=== PATIENT | female | born 1970 | race Caucasian/White ===

== ENCOUNTER 2023-04-17 07:56 | Outpatient (CLI) | payer BC, SELFPAY | END 2023-04-17 07:57 | disposition home or self-care (01) | LOC: NFLDREF 04-18 07:11 | PROVIDERS: PCP Physician Assistant Medical; Referring Provider Physician Assistant Medical; Visit Provider Physician Assistant Medical | DX: Z00.00 Encounter for general adult medical examination without abnormal findings (principal); R53.83 Other fatigue; Z13.6 Encounter for screening for cardiovascular disorders; Z13.1 Encounter for screening for diabetes mellitus | CPT/HCPCS: 80061; 82306; 82607; 82728; 82947; 84443 ==

== ENCOUNTER 2024-04-20 10:00 | Outpatient (CLI) | payer BC, SELFPAY ==
--- OUTSIDE RECORDS SUMMARY | 2024-04-21 13:53 | XMS_ITS | Clinical Summary ---
Author Organization [facility] Address [place], [place] [address] Care Team Providers Care Director Translational Name Role Phone Angelo Musa Primary Care Provider [phone] Allergies Active Allergy Reactions Criticality Noted Date Comments Sulfa (Sulfonamide Antibiotics) Hives 11/14 Medications Medication Sig Dispensed Refills Start Date End Date Status NORGESTIMATE-ETHINYL ESTRADIOL (TRI-SPRINTEC, 28, ORAL) Take by mouth once daily. Active multivitamin capsule Take 1 capsule by mouth once daily. 0 01/24/2010 Active hydrOXYzine pamoate (VISTARIL) 25 mg capsule Take 1 capsule by mouth every 6 hours if needed. 20 capsule 0 12/02/2011 Active rx methylPREDNISolone (MEDROL DOSEPAK) 4 mg tablet (ED DC MED) Take 1 tablet by mouth. As indicate on the medication pack 1 Package 0 12/02/2011 Active Active Problems Problem Noted Date Diagnosed Date Routine health maintenance 01/24/2010 Overview: Last Breast Exam 04/12/09 Last Cholesterol 04/12/09 Immunizations Name Administration Dates Next Due Td (Age >=7 Years) 02/02/2003 Family History Medical History Relation Name Comments Hypertension Father Hyperlipidemia Mother Alcohol/Drug Other Grandparent Cancer Other Grandparent Heart Disease Other Grandparent Hyperlipidemia Other Grandparent Hypertension Other Grandparent Stroke Other Grandparent Relation Name Status Comments Father Mother Other Social History Tobacco Use Types Packs/Day Years Used Date Smoking Tobacco: Never Smokeless Tobacco: Never Alcohol Use Standard Drinks/Week Comments Yes 0 (1 standard drink = 0.6 oz pur e alcohol) Sex and Gender Information Value Date Recorded Sex Assigned at Not on file Gender Identity Not on file Sexual Orientation Not on file Obstetrics History Last Filed Vital Signs Vital Sign Reading Time Taken Comments Blood Pressure 119/90 12/02/2011 10:04 AM CDT Pulse 65 12/02/2011 10:04 AM CDT Temperature 36.6 ??C (97.9 ??F) 12/02/2011 10:04 AM C DT Respiratory Rate 16 12/02/2011 10:04 AM CDT Oxygen Saturation 98% 12/02/2011 10:04 AM CDT Inhaled Oxygen Concentration - - Weight 62.3 kg (137 lb 6.4 oz) 01/24/2010 9:32 A M CDT Height - - Body Mass Index - - Plan of Treatment Health Maintenance Due Date Last Done Comments Tdap 1979 Depression screening for age 12+ 1980 HIV for age 15-65 1983 BMI (ht and wt on same day) for age 18+ 1986 Hepatitis C screening for ag e 18-79 1986 Pap test for age 21-65 1989 Tetanus booster 02/02/2013 02/02/2003 Colonoscopy through age 75 2013 Lipids for age 45-75 2013 Mammogram for age 45-75 2013 Zoster (shingles) series for age 50+ (1 of 2) 2018 COVID-19 vaccine series ( - 2022- season) 2023 Influenza for age 50-64 05/17/2024 Pneumococcal series for age 6-64 Aged Out No longer eligible based on patient's age to complete this topic Care Teams Director Translational Relationship Specialty Start Date End Date Angelo Musa PA [facility] - General 01/23/10
--- OUTSIDE RECORDS SUMMARY | 2024-04-21 13:53 | XMS_ITS | Referral Summary ---
Author Organization [facility] Address [address] [place] [id number] Care Team Providers Care Tool Machine Shop Supervisor Name Role Phone Diana Mccoy MD Primary Care Provider + Allergies Active Allergy Reactions Criticality Noted Date Comments Sulfa Antibiotics Hives 06/11/2017 Medications Medication Sig Dispensed Refills Start Date End Date Status norethindrone-ethin yl estradiol-iron (ESTROSTEP FE) 1-20/1-30/1-35 MG-MCG per tablet Take 1 tablet by mouth daily Active phenazopyridine (PYRIDIUM) 200 MG tabletIndications:D ysuria Take 1 tablet (200 mg) by mouth 3 times daily as needed for irritation 6 tablet 06/11/2017 Active cefdinir (OMNICEF) 300 MG capsuleIndications: Dysuria,Nonspecific finding on examination of urine Take 1 capsule (300 mg) by mouth 2 times daily 14 capsule 06/11/2017 Active Social History Tobacco Use Types Packs/Day Years Used Date Smoking Tobacco: Never Smokeless Tobacco: Never Adolescent Education Answer Date Record ed Getting School Help Needed Not on file 06/30 Sex and Gender Information Value Date Recorded Sex Assigned at Not on file Gender Identity Not on file Sexual Orientation Not on file Last Filed Vital Signs Vital Sign Reading Time Taken Comments Blood Pressure 140/90 06/11/2017 7:43 PM CDT Pulse 72 06/11/2017 7:43 PM CDT Temperature 36.9 ??C (98.5 ??F) 06/11/2017 7:43 PM CD T Respiratory Rate - - Oxygen Saturation 98% 06/11/2017 7:43 PM CDT Inhaled Oxygen Concentration - - Weight - - Height - - Body Mass Index - - Plan of Treatment Not on file Procedures Procedure Name Priority Date/Time Associated Diagnosis Comments MA SCREENING BILATERAL W/ TREVON Routine 03/22/2022 10:29 AM CDT Visit for screening mammogram from Last 3 Months or Most Recently Relevant to Health Maintenance Results * MA Screen Bilateral w/Trevon (03/22/2022 10:29 AM CDT) Anatomical Region Laterality Modality Breast Bilateral Mammography Narrative 03/22/2022 1:26 PM CDT BILATERAL FULL FIELD DIGITAL SCREENING MAMMOGRAM WITH TOMOSYNTHESIS Performed on: 03/22/22 Compared to: 03/21/2021 and 10/01/2016 Technique: ??This study was evaluated with the assistance of Computer-Aided Detection. ??Breast Tomosynthesis was used in interpretation. Findings: The breasts are heterogeneously dense, which may obscure small masses. ??There is no radiographic evidence of malignancy. IMPRESSION: ACR BI-RADS Category 1: Negative RECOMMENDED FOLLOW-UP: Annual routine screening mammogram The results and recommendations of this examination will be communicated to the patient. Diana Mccoy MD IMG MAMMOGRAPHY ORDERABLES from Last 3 Months or Most Recently Relevant to Health Maintenance Care Teams Tool Machine Shop Supervisor Relationship Specialty Start Date End Date Diana Mccoy MD [address] [place] [address] PCP - General cheese tester 05/12/12
--- OUTSIDE RECORDS SUMMARY | 2024-04-21 13:53 | XMS_ITS | Clinical Summary ---
Author Organization [facility] Address [address] [place] [id number] Care Team Providers Care Property Management Bookkeeper Name Role Phone Diana Mccoy MD Primary [...] Health Maintenance Due Date Last Done Comments ADVANCE CARE PLANNING 1968 ANNUAL REVIEW OF HM ORDERS 1968 CT COLONOGRAPHY 1968 FIT 1968 FLEX SIG 1968 GLUCOSE 1968 sDNA (Cologuard) 1968 COLONOSCOPY 1978 COLORECTAL CANCER SCREENING 1978 HIV SCREENING 1983 HEPATITIS C SCREENING 1986 HEPATITIS B IMMUNIZATION (1 of 3 - 19+ 3-dose series) 1987 LIPID 2008 YEARLY PREVENTIVE VISIT 03/01/2023 03/01/20, 02/28/2022, 08/29/2017 COVID-19 Vaccine ( season) 2023 08/14/2021, 12/07/2020, 11/09/2020 PHQ-2 (once per calendar year) 2023 MAMMO SCREENING 03/22/2024 03/22/2022, 07/0 05/2021, 03/21/2021, Additional history exists INFLUENZA VACCINE (#1) 2024 3, 06/19/2012, 06/19/2012 PAP 03/01/2025 03/01/2022, 03/01/2022 DTAP/TDAP/TD IMMUNIZATION (3 - Td or Tdap) 02/25/2029 02/25/2019, 03/16/2013, 02/02/2003 ZOSTER IMMUNIZATION Completed 07/02/2019, 9 HPV IMMUNIZATION Aged Out No longer e ligible based on patient's age to complete this topic IPV IMMUNIZATION Aged Out No longer e ligible based on patient's age to complete this topic MENINGITIS IMMUNIZATION Aged Out No l onger eligible based on patient's age to complete this topic Pneumococcal Vaccine: Pediatrics (0 to 5 Years) and At-Risk Patients (6 to 64 Years) Aged Out No longer eligible based on patient's age to complete this topic RSV MONOCLONAL ANTIBODY Aged Out No l onger eligible based on patient's age to complete this topic Procedures Procedure Name Priority Date/Time Associated Diagnosis [...] Recently Relevant to Health Maintenance Care Teams Property Management Bookkeeper Relationship Specialty Start Date End Date Diana Mccoy MD [address] [place] [address] PCP - General hospital [facility] 05/12/12
--- OUTSIDE RECORDS SUMMARY | 2024-04-21 13:53 | XMS_ITS | Clinical Summary ---
[facility] Address [address] [place] [address] Care Team Providers Care Automotive Window Tinter Name Role Phone Erika Tello PA-C Primary Care Provider [phone] Source Comments You are receiving this document as you are listed as the primary care provider,follow-up provider, or the patient has been referred to you for consultation.This is in compliance with the Medicare and[employer] EHR Incentive Program,which states Providers who transition their patient to another setting of careor provider of care or refers their patient to another provider of care shouldprovide summary care record for each transition of care or referral. [facility] Active Allergy Reactions Criticality Noted Date Comments Lactose Unknown 08/24/2023 Sulfa Antibiotics Hives 03/16/2013 Medications Medication Sig Dispensed Refills Start Date End Date Status tretinoin (AKA RETIN-A) 0.025 % creamIndications:Acn e vulgaris Apply topically nightly. Apply to cleansed and dried skin. Will call when needed. 45 g 3 01/09/2016 Active spironolactone (ALDACTONE) 50 MG tabletIndications:Ac ne vulgaris Take 1 Tab by mouth daily. 90 Tab 1 03/08/2017 Active calcium carb-cholecalciferol 600-800 MG-UNIT tablet Take 1 Tab by mouth two times a day. Active Cholecalciferol (VITAMIN D3) 66070 UNITS Active predniSONE (DELTASONE) 10 MG tablet Take 4 tabs by mouth daily for 2 days, then 3 tabs daily for 2 days, then 2 tabs daily for 2 days, then 1 tab daily for 2 days. 20 Tablet 08/26/2023 Active Active Problems Problem Noted Date Diagnosed Date Metrorrhagia 08/29/2017 Irregular periods 08/29/2017 Family history of thyroid disease 08/29/2017 Acne vulgaris 01/09/2016 Immunizations Name Administration Dates Next Due Chicken Pox - History of Illness 1973 Flu Vac Preserv Free (3+yrs) 06/19/2012 HepA Adult (19+ yrs) 08/29/2017,03/16/2013 TDAP (BOOSTRIX) 03/16/2013 Td 02/02/2003 Family History Medical History Relation Name Comments Diabetes Father Prediabetes Hypertension Father Obesity Father Cancer Mother Breast cancer a ge 67 Ulcerative Colitis Mother Alzheimer's Maternal Grandfather No Known Problems Maternal Grandmother Alcohol Abuse Paternal Grandfather Stroke Paternal Grandfather Heart Disease Paternal Grandmother Other Sister 1 Brittle Bones Thyroid Disorder Sister 2 Anxiety Sister 3 Depression Sister 3 Multiple Sclerosis Sister 3 Relation Name Status Comments Father Alive Mother Alive Maternal Grandfather Maternal Grandmother Paternal Grandfather Paternal Grandmother Sister 1 Alive Sister 2 Alive Sister 3 Alive Social History Tobacco Use Types Packs/Day Years Used Date Smoking Tobacco: Never Smokeless Tobacco: Never Alcohol Use Standard Drinks/Week Comments Yes 4 (1 standard drink = 0.6 oz pur e alcohol) Sex and Gender Information Value Date Recorded Sex Assigned at Not on file Gender Identity Not on file Sexual Orientation Not on file Last Filed Vital Signs Vital Sign Reading Time Taken Comments Blood Pressure 138/79 08/29/2017 5:02 PM FARM SPECIALIST Pulse 86 08/29/2017 5:02 PM FARM SPECIALIST Temperature 36.4 ??C (97.6 ??F) 08/24/2023 2:08 PM CS T Respiratory Rate 16 08/29/2017 8:07 AM FARM SPECIALIST Oxygen Saturation - - Inhaled Oxygen Concentration - - Weight 61.2 kg (135 lb) 08/24/2023 2:08 PM FARM SPECIALIST Height 170.2 cm (5' 7) 08/24/2023 2:08 PM FARM SPECIALIST Body Mass Index 21.14 08/24/2023 2:08 PM FARM SPECIALIST Plan of Treatment Health Maintenance Due Date Last Done Comments Colon Cancer Screening Plan Due 1968 Hep C Screening (Preventive Services) 1968 HIV Screening (Preventive Services) 1984 HepB (1) 1987 Adult Preventive Visit 08/29/2018 08/29/2017 Cervical Cancer Screening 09/16/20192016 (Completed) Cholesterol 08/29/2022 08/29/2017 Mammogram 03/22/2023 03/22/2022, 10/01/2016, 04/19/2016 COVID-19 Vaccine (4 - 3-2 4 season) 2023 08/14/2021, 12/07/2020, 11/09/2020 Influenza (#1) 2024 06/18/2013, 06/19/2012 DTaP/Tdap/Td (3 - Tdap) 02/25/2029 02/26/20, 03/16/2013, 02/02/2003 HepA Aged Out 08/29/2017, 03/16/2013 No longer eligible based on patient's age to complete this topic Zoster/Shingles Completed 07/02/2019, 03/09/2019 Hib Aged Out No longer eligi ble based on patient's age to complete this topic IPV (Polio) Aged Out No longer eligi ble based on patient's age to complete this topic MCV4 Aged Out No longer eligi ble based on patient's age to complete this topic Pneumococcal Aged Out No longer eligi ble based on patient's age to complete this topic Procedures Procedure Name Priority Date/Time Associated Diagnosis Comments MM MAMMOGRAM SCREENING BILAT W 3D JUDITH W CAD Routine 03/22/2022 10:29 AM CDT LIPID PANEL & DIRECT LDL (IF NEEDED) Routine 08/29/2017 9:11 AM FARM SPECIALIST Encounter for screening for lipoid disorders from Last 3 Months or Most Recently Relevant to Health Maintenance Results * (ABNORMAL) Lipid Panel and Direct LDL(If Needed) (08/29/2017 9:11 AM FARM SPECIALIST) Cholesterol 245(H) 0 - 199 mg/dL PN SOFT Triglycerides 90 4 - 149 mg/dL PN SOFT HDL Cholesterol 84 >39 mg/dL PN SOFT Cholesterol/HDL Ratio Screen 2.9 PN SOFT LDL Calculated 143(H) 19 - 130 mg/dL PN SOFT Non HDL Chol, Calc 161(H) 0 - 130 mg/dL PN SOFT Hours Fasting 12.0 PN SOFT 08/29/2017 9:11 AM FARM SPECIALIST 08/29/2017 11:25 AM FARM SPECIALIST Narrative PN SOFT - 08/29/2017 11:59 AM FARM SPECIALIST Performed at [facility], [address] [place] [address] CLIA number [id number] Erika Tello PA-C LAB_[facility] [address] [place] [address] from Last 3 Months or Most Recently Relevant to Health Maintenance Care Teams Automotive Window Tinter Relationship Specialty Start Date End Date Erika Tello PA-C [address] [place] [address] PCP - General Physician Special Education Resource Teacher 08/19/17
== END 2024-04-20 10:01 | disposition home or self-care (01) ==
LOC: NFLDREF 04-21 13:51
PROVIDERS: PCP Physician Assistant Medical; Referring Provider Physician Assistant Medical; Visit Provider Physician Assistant Medical
DX: Z00.00 Encounter for general adult medical examination without abnormal findings (principal); E78.5 Hyperlipidemia, unspecified; D68.2 Hereditary deficiency of other clotting factors
CPT/HCPCS: 80053; 80061

== ENCOUNTER 2024-05-19 19:57 | Emergency (ER) | payer BC, SELFPAY ==
[2024-05-19 20:06] VITALS: BP 189/100; PULSE 65; RESP 16; TEMP 36.7; O2SAT 99; BMI 21.3
--- NOTE | 2024-05-19 20:23 | ED_ITS ---
HPI - General Adult General Time Seen by Provider: 20:24 Date Seen: 05/19/24 Chief complaint: Hypertension Stated complaint: High BP and Dizzy Time Seen by Provider: 05/19/24 20:16 Source: patient and RN notes reviewed Mode of arrival: ambulatory Limitations: no limitations History of Present Illness HPI narrative: Willie is a 53-year-old female accompanied by her significant other coming in with episode of dizziness. She notes sometime probably between 4-430 p.m. today she started feeling dizzy. She describes it as a spinning sensation. She states that it was like if someone took her and spun her around on an object and then had her try to walk, she felt like she was spinning in relationship to the environment. He did try to help her up at 1 point, she seemed like she was going to stumble, had her get back on the couch. She has not had any alcohol or any mood altering substances. He did not notice any speech changes. She did not get sick with this. She noted no visual changes, no headache. On her way here, she felt like her face in neck and chest felt a little numb. As I am talking to her she states like her arms maybe feel little numb. We discussed that stroke symptoms just happen on 1 side of the body or other. She admits that this episode probably gave her some anxiety. She is feeling better at this time, feels that she is improved. She did not notice any tinnitus or any hearing changes during this episode. She told nursing staff that she was feeling foggy. She had an episode about 5 years ago where her blood pressure was elevated, they found it to be attributed to her control pills in resolved when she was off of this. He did check her blood pressure when he came home to find her this way in the couch, was 160/90 range. Her cholesterol has been a little elevated. She has no prior cardiac or neurologic diagnoses. She is factor 12 deficient. She has not had any blood clots before. 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 Denies any chest pain. States ambulating in felt much better than it did at attempt earlier. Related Data Home Medications ?Medication ?Instructions ?Recorded ?Confirmed multivitamin (Multiple Vitamins 1 tab PO QAM 06/28/22 04/23/24 tablet) trazodone 50 mg tablet 50 mg PO QPM 05/19/24 05/19/24 Previous Rx's ?Medication ?Instructions ?Recorded tretinoin 0.025 % topical cream 1 applic topical ONCE #45 grams 10/31/23 Allergies Allergy/AdvReac Type Severity Reaction Status Date / Time Sulfa (Sulfonamide Allergy Severe Hives Verified 04/23/24 10:04 Antibiotics) nickel Allergy Unknown Redness of Verified 04/23/24 10:04 Skin Review of Systems Status of ROS: Reports: 6 or more systems reviewed and unremarkable except as noted in History and below PFSH PFS Surgical History Hx of bladder repair surgery ?Z98.890 - Other specified postprocedural states (ICD-10) History of endometrial ablation ?Z98.890 - Other specified postprocedural states (ICD-10) Hx of lumpectomy ?Z98.890 - Other specified postprocedural states (ICD-10) Hx of oral surgery ?Z98.890 - Other specified postprocedural states (ICD-10) Hx of tonsillectomy ?Z90.89 - Acquired absence of other organs (ICD-10) Family History Mother Ulcerative colitis Breast cancer High blood pressure Sister Cancer of kidney Sister Multiple sclerosis Father Coronary artery disease Diabetes High blood pressure Social History Narrative: alcohol use 1-2 drinks per week, Never smoker- non tobacco user Employed- special Ed specialist . 2 adult children ( 28 yo, 27 yo) Smoking Status: Never smoker Do you use any of these nicotine containing products: None Second hand tobacco smoke exposure: No How often do you have a drink containing alcohol: never How often do you have six or more drinks on one occasion: Never AUDIT-C Alcohol total score: 0 Non-prescribed substance use: denies use Little interest or pleasure in doing things: not at all Feeling down, depressed, or hopeless: not at all Exam Const: Vital Signs, click to edit/add: Vital Signs - 24 hr 05/19/24 20:06 05/19/24 21:00 05/19/24 21:42 Temperature 98.1 F Pulse Rate [Pulse Oximeter] 65 61 Respiratory Rate 16 16 Blood Pressure [Ri ght Upper Arm] 189/100 H 151/98 H Pulse Oximetry 99 98 98 Oxygen Delivery Me thod Room Air Room Air This 53-year-old female is alert, interactive, no apparent distress. Her speech is normal, pupils are equal round reactive, extraocular muscles intact. Do note some fine being lateral nystagmus to the left. Moving her head with a fixed gaze shows no saccade issues. It does not bother her when I do this. TMs canals are normal. Symmetrical facial function. Neck is supple, no adenopathy, no jugular venous distension. Lungs are clear, good air entry, no wheezing or crackles. CV regular rate and rhythm, no murmur, normal S1-S2, no S3-S4. Abdomen is soft, nontender, nondistended. She has 5/5 symmetrical strength through the fingers, hands, wrists, elbows, shoulders, lower extremity strength is same with 5/5 through toes, ankles, knees, hips. She did reportedly ambulate in. She has normal sensation throughout. No lower extremity edema. Normal rapid alternating finger movements, no arm drift. Documenting provider has reviewed patient's vital signs: yes Course Course ED Course: Did review with patient that we should proceed with neuro imaging. Will do a head CT and CT angio of her head neck. Have her on pulse oximetry and cardiac monitoring. I am happy that she is improving and feeling better. Will get full complement of labs. Her sensation that she is describing certainly sounds like vertiginous equivalent. Am not aware that factor 12 deficiency is a notable offender with cerebrovascular disease but in up-to-date it can be associated with venous thromboembolism and myocardial infarction. This is not a very common disorder though and literature is ambiguous. Reevaluation(s) Time of Reevaluation #1: 22:14 Reevaluation #1: Did review CT findings with the patient. She knows that she should continue on her cholesterol medicine or be on cholesterol medicine given the atherosclerosis seen in the left carotid. This will need ongoing monitoring with routine outpatient carotid ultrasounds which can be done through her primary. There is the possibility of thyroid nodules, she will need an outpatient thyroid ultrasound done as well. As for the MRI, it is recommended that she have this and stay overnight by [facility]. Patient really does not want to stay, she is feeling fine. Discussed the option of having her contact [facility] to see if they could get her an expedited brain MRI noncontrast to complete this workup. She already had CT angio done of the brain and neck and thus does not need to be done on MR imaging at this point. We have discussed the challenges of decipher ring central versus peripheral vertigo. We cannot completely rule out stroke pathology is the causative etiology of this but she is out of time frame for any active intervention like lytic therapy, no large vessel occlusion was seen on her CT angio however. I think it is reasonable for her request to go home and work this up outpatient. She understands if she has worsening interim, to return. Consultations Consultation #1: Did speak with Dr. Nelson from [facility]roke [facility] at [place]. She does agree with doing the CT, CTA to ensure no vertebral artery abnormality. Patient is out of a lytic time frame at this point. We reviewed the blood pressure, patient's history. She certainly would recommend follow-up MR imaging of this patient's brain, will need to decide if this needs to happen inpatient versus outpatient. Patient at this time is improved. Plan will be for me to contact her back once images have been read by radiologist. Time: 21:09 Consultation #2: Did speak with Dr. Nelson and reviewed CT, CTA reports. She feels that this patient should be observed overnight to have MR imaging of her brain in the morning to ensure that this is peripheral and not central. She would like me to give her an 81 mg aspirin. If the patient does not agree to stay overnight, I will let her know and we will litigation counsel the patient on getting expedited outpatient brain MRI. Time: 22:03 Vital Signs Vital signs: Initial Vital Signs Temperature 98.1 F 05/19/24 20:06 Temperature Source Temporal Artery Scan 05/19/24 20:06 Pulse Rate 65 05/19/24 20:06 Pulse Rhythm Regular 05/19/24 20:06 Respiratory Rate 16 05/19/24 20:06 Blood Pressure 189/100 H 05/19/24 20:06 Blood Pressure Mean 129 H 05/19/24 20:06 Blood Pressure Position Supine 05/19/24 20:06 Pulse Oximetry 99 05/19/24 20:06 Oxygen Delivery Method Room Air 05/19/24 20:06 Vital Signs Temperature 98.1 F 05/19/24 20:06 Pulse Rate 65 05/19/24 20:06 Respiratory Rate 16 05/19/24 20:06 Blood Pressure 189/100 H 05/19/24 20:06 Pulse Oximetry 99 05/19/24 20:06 Oxygen Delivery Method Room Air 05/19/24 20:06 Temperature 98.1 F 05/19/24 20:06 Pulse Rate 61 05/19/24 21:42 Respiratory Rate 16 05/19/24 21:42 Blood Pressure 151/98 H 05/19/24 21:42 Pulse Oximetry 98 05/19/24 21:42 Oxygen Delivery Method Room Air 05/19/24 21:42 Medical Decision Making Lab Data Lab results reviewed: Yes I reviewed the patient's lab results Labs: Lab Results 05/19/24 Range/Units 20:28 WBC 4.85 (4.50-11.00) K/uL RBC 3.99 L (4.00-5.20) m/uL Hgb 12.2 (12.0-16.0) gm/dL Hct 36.7 (33.0-51.0) % MCV 92 (80-100) fL MCH 31 (26-34) pg MCHC 33 (32-36) gm/dL RDW Coeff of Alicia 12.9 (11.5-15.5) % Plt Count 218 (140-440) K/uL Neut % (Auto) 34.1 L (42.0-72.0) % Lymph % (Auto) 50.3 H (20-44) % [place] % (Auto) 9.5 (0.0-11.0) % Eos % (Auto) 4.9 (0.0-7.0) % Baso % (Auto) 0.8 (0.0-3.0) % Neut # (Auto) 1.70 (1.7-7.0) K/uL Lymph # (Auto) 2.40 (0.90-2.90) K/uL [place] # (Auto) 0.50 (0.00-0.90) K/UL Eos # (Auto) 0.24 (0.00-0.50) K/uL Baso # (Auto) 0.04 (0.00-0.30) K/uL Abs Immat Gran (auto) 0.02 (0.00-0.30) K/uL Imm/Tot Granulo (auto) 0.4 % Sodium 136 (135-149) mmol/L Potassium 3.8 (3.6-5.1) mmol/L Chloride 102 (96-114) mmol/L Carbon Dioxide 29 (20-32) mmol/L Anion Gap 5 L (7-15) mEq/L BUN 17 (7-30) mg/dL Creatinine 0.7 (0.5-1.5) mg/dL Estimated Creat Clear 91.03 Estimated GFR 102 ml/min Glucose 86 (60-115) mg/dL Calcium 9.3 (8.4-10.6) mg/dL Magnesium 2.2 (1.5-2.6) mg/dL Total Bilirubin 0.4 (0.1-1.5) mg/dL AST 29 (12-35) U/L ALT 15 (4-35) U/L Alkaline Phosphatase 66 (40-150) U/L C-Reactive Protein < 0.5 L (0.5-1.0) mg/dL Total Protein 7.1 (6.0-8.3) g/dL Albumin 4.5 (3.3-5.0) g/dL Imaging Data CT scan - head: Attestation: I have reviewed the pertinent imaging results. Radiologist's impression: Patient: WILLIE ROA Facility:?[facility] Patient ID:?[id number] Site Patient ID:?[id number]. Site :?1970 Study:?CT-Head W/O-05/19/2024 9:22:37 PM Ordering Physician:JOAO Final Report: INDICATION: Dizziness. COMPARISON: None. TECHNIQUE: Noncontrast CT head. FINDINGS: Normal brain parenchymal morphology. No acute intracranial hemorrhage, acute infarct, focal edema, mass effect, or fracture. No midline shift. No abnormal ventricular dilatation. Normal calvarium and skull base. Visualized paranasal sinuses and mastoid air cells are clear. IMPRESSION: No acute intracranial abnormality. Please note that all CT scans at this facility use dose modulation, iterative reconstruction, and/or weight-based dosing when appropriate to reduce radiation dose to as low as reasonably achievable. Dictated by Robert Mera MD @ 05/19/2024 9:37:35 PM (Electronic Signature) CT- Other: Attestation: I have reviewed the pertinent imaging results. Radiologist's impression: Patient: WILLIE ROA Facility:?[facility] Patient ID:?[id number] Site Patient ID:?[id number]. Site :?1970 Study:?CT-Neck Angio W/ 95CC ISOVUE 370-05/19/2024 9:23:32 PM Ordering Physician:JOAO Preliminary Report: INDICATION: Dizziness. COMPARISON: None. Technique. FINDINGS: CTA head: Bilateral carotid siphons and [place] are patent. Major bilateral intracranial arterial circulations are patent with no high-grade stenosis, large vessel occlusion, or aneurysm. Patent codominant vertebrobasilar system. CTA neck: Mild atheromatous plaque of the left carotid bulb with mild, less 50 percent narrowing by luminal diameter. Otherwise, remainder of the bilateral carotid circulations are patent to the skullbase. No high-grade stenosis. Patent bilateral vertebral artery circulations from the origin through the v ertebrobasilar junction. No high-grade stenosis or dissection. Other: Normal alignment the cervical spine. No prevertebral soft tissue swelling. Low attenuation nodularity of the thyroid gland. This may be better evaluated with ultrasound. Dictated by Robert Mera MD @ 05/19/2024 9:42:09 PM Read by:?Robert Mera MD @05/19/2024 9:42:18 PM ECG Data Attestation: I personally reviewed and interpreted this ECG as follows: (Normal sinus rhythm, 67 beats per minute. No acute ischemic change or infarct.) Discharge Plan Discharge Clinical Impression: Vertigo, Elevated blood pressure reading Patient Disposition: Home, Self-Care Condition: Stable Instructions: Vertigo (ED) Additional Instructions: Need to follow up in clinic as soon as possible, do get an appointment scheduled. Regardless, need to talk to clinic staff tomorrow to see if they can help get a noncontrast brain MRI done as quickly as possible, I would hope that it could be done within the next few days throughout our organization if possible. Consider taking an 81 mg aspirin daily until you do note that there is no evidence of any small stroke on brain MRI. You do need to follow up with your primary care provider about the other findings on the CT scans, thyroid ultrasound should be done and routine follow-up of the carotid atherosclerosis should be done. Your blood pressure needs to be rechecked and make sure that you are not developing hypertension. In the meantime, she do develop increased symptoms of vertigo again or other concerns, please return for further evaluation. Activity Level: Activity as Tolerated Prescriptions: No Action multivitamin [Multiple Vitamins] Tablet 1 tab PO QAM tretinoin 0.025 % cream 1 applic topical ONCE Qty: 45 1RF Rx Instructions: APPLY TOPICALLY TO AFFECTED AREA AT NIGHT BEFORE BED trazodone 50 mg tablet 50 mg PO QPM Follow Up/Referrals: Karlie Juárez PA-C [Primary Care Provider] - Stand Alone Forms: [employer] Info Instructions
--- NOTE | 2024-05-19 20:34 | CT_ITS ---
Patient: WILLIE ROA Facility:?[facility] Patient ID:?[id number] Site Patient ID:?[id number]. Site :?1970 Study:?CT-Head Angio W/ 95CC ISOVUE 370-05/19/2024 9:24:21 PM Ordering Physician:JOAO Final Report: DATE: 05/19/2024 CLINICAL HISTORY: Patient with dizziness. TECHNIQUE: Standard helical CT image acquisition through the intracranial circulation following intravenous administration of contrast material with bolus tracking. 2D and 3D MIP images for post-processing were performed and interpreted on an independent workstation and 3D images were permanently archived. COMPARISON: CT same day. FINDINGS: There is no cerebral aneurysm or large vessel occlusion. The right internal carotid artery is normal. The right middle cerebral artery and its branches are normal. The right anterior cerebral artery and its branches are normal. The left internal carotid artery is normal. The left middle cerebral artery and its branches are normal. The left anterior cerebral artery and its branches are normal. The anterior communicating artery is well visualized and appears normal. The right vertebral artery and PICA are normal. The left vertebral artery and PICA are normal. The vertebral arteries are codominant. The basilar artery is patent and appears normal. The right posterior cerebral artery is normal. The left posterior cerebral artery is normal. The visualized venous structures are patent. IMPRESSION: Patent proximal intracranial vasculature without intracranial aneurysms. Please note that all CT scans at this facility use dose modulation, iterative reconstruction, and/or weight-based dosing when appropriate to reduce radiation dose to as low as reasonably achievable. Dictated by Leia Nuñez MD @ 05/20/2024 12:17:23 PM Signed by:?Leia Nuñez MD @05/20/2024 12:17:23 PM (Electronic Signature)
--- NOTE | 2024-05-19 20:34 | CT_ITS ---
Patient: WILLIE ROA Facility:?[facility] Patient ID:?[id number] Site Patient ID:?[id number]. Site :?1970 Study:?CT-Head W/O-05/19/2024 9:22:37 PM Ordering Physician:JOAO Final Report: INDICATION: Dizziness. COMPARISON: None. TECHNIQUE: Noncontrast CT head. FINDINGS: Normal brain parenchymal morphology. No acute intracranial hemorrhage, acute infarct, focal edema, mass effect, or fracture. No midline shift. No abnormal ventricular dilatation. Normal calvarium and skull base. Visualized paranasal sinuses and mastoid air cells are clear. IMPRESSION: No acute intracranial abnormality. Please note that all CT scans at this facility use dose modulation, iterative reconstruction, and/or weight-based dosing when appropriate to reduce radiation dose to as low as reasonably achievable. Dictated by Robert Mera MD @ 05/19/2024 9:37:35 PM Signed by:?Robert Mera MD @05/19/2024 9:37:35 PM (Electronic Signature)
--- NOTE | 2024-05-19 20:34 | CT_ITS ---
Patient: WILLIE ROA Facility:?[facility] Patient ID:?[id number] Site Patient ID:?[id number]. Site :?1970 Study:?CT-Neck Angio W/ 95CC ISOVUE 370-05/19/2024 9:23:32 PM Ordering Physician:JOAO Final Report: DATE: 05/19/2024 CLINICAL HISTORY: Patient with dizziness. TECHNIQUE: Standard helical CT image acquisition of the neck up to the skull base after bolus intravenous contrast enhancement. 2D and 3D MIP images for post-processing were performed and interpreted on an independent workstation and 3D images were permanently archived. COMPARISON: CT same day. FINDINGS: The origins of the great vessels from the aortic arch are patent. The origin of the right vertebral artery demonstrates mild narrowing. The origin of the left vertebral artery is patent. The common carotid arteries are patent. There is no stenosis at the origin of the right internal carotid artery by NASCET criteria. There is a mild (<50%) stenosis at the origin of the left internal carotid artery by NASCET criteria. This is caused by non-calcified plaque with a <2mm residual lumen. The rest of the cervical segments of the internal carotid arteries are patent up to the skull base. The vertebral arteries are codominant. The cervical segments of the vertebral arteries are patent up to the skull base. The visualized lung apices are unremarkable. The thyroid gland demonstrates a 1.8cm heterogeneous lesion in its right lobe. The soft tissues of the neck are unremarkable. There are degenerative changes in the cervical spine. IMPRESSION: 1. Mild (<50%) stenosis at the origin of the left internal carotid artery by NASCET criteria. This is caused by non-calcified plaque with a <2mm residual lumen 2. Mild narrowing at the origin of the right vertebral artery. 3. 1.8cm heterogeneous right thyroid lesion. Further evaluation with ultrasound is recommended. Please note that all CT scans at this facility use dose modulation, iterative reconstruction, and/or weight-based dosing when appropriate to reduce radiation dose to as low as reasonably achievable. Dictated by Leia Nuñez MD @ 05/20/2024 12:15:19 PM Signed by:?Leia Nuñez MD @05/20/2024 12:15:19 PM (Electronic Signature)
[2024-05-19 21:00] VITALS: O2SAT 98
--- NOTE | 2024-05-19 21:04 | PC.NURSE ---
Pt. states approx. two hours ago was making dinner and began feeling dizzy. not like the room was spinning, like I was spinning. Denies headache. States she felt maybe she needed to eat, while eating pt states she felt better holding her head with her hand. Pt also c/o bilateral arm tingling from upper humerus to wrist that is constant.
[2024-05-19 21:12] LABS: Albumin* 4.5 g/dL (3.3-5.0); Basophils Absolute Auto 0.04 K/uL (0.00-0.30); Basophils Percent Auto 0.8 % (0.0-3.0); Chloride* 102 mmol/L (96-114); Eosinophils Absolute Auto 0.24 K/uL (0.00-0.50); Eosinophils Percent Auto 4.9 % (0.0-7.0); Hematocrit 36.7 % (33.0-51.0); Hemoglobin* 12.2 gm/dL (12.0-16.0); Immature Granulocytes Abs Auto 0.02 K/uL (0.00-0.30); Immature Granulocytes Pct Auto 0.4 %; Lymphocytes Percent Auto 50.3 % (20-44); Mean Corpuscular HGB Conc 33 gm/dL (32-36); Mean Corpuscular Hemoglobin 31 pg (26-34); Mean Corpuscular Volume 92 fL (80-100); Monocytes Percent Auto 9.5 % (0.0-11.0); Neutrophils Percent Auto 34.1 % (42.0-72.0); Platelet Count* 218 K/uL (140-440); RDW Coefficient of Variation % 12.9 % (11.5-15.5); Red Blood Count 3.99 m/uL (4.00-5.20); White Blood Count* 4.85 K/uL (4.50-11.00)
[2024-05-19 21:13] LABS: Potassium* 3.8 mmol/L (3.6-5.1); Slide Review Reflex No; Sodium* 136 mmol/L (135-149)
[2024-05-19 21:15] LABS: Creatinine* 0.7 mg/dL (0.5-1.5); Est. Creatinine Clearance* 91.03; Estimated Glomerular Filt Rate 102 ml/min
[2024-05-19 21:16] LABS: Alanine Aminotransferase* 15 U/L (4-35); Alkaline Phosphatase* 66 U/L (40-150); Anion Gap 5 mEq/L (7-15); Aspartate Amino Transferase* 29 U/L (12-35); Bilirubin Total* 0.4 mg/dL (0.1-1.5); Blood Urea Nitrogen* 17 mg/dL (7-30); Calcium* 9.3 mg/dL (8.4-10.6); Carbon Dioxide* 29 mmol/L (20-32); Glucose* 86 mg/dL (60-115); Magnesium* 2.2 mg/dL (1.5-2.6); Total Protein* 7.1 g/dL (6.0-8.3)
[2024-05-19 21:23] LABS: C Reactive Protein* < 0.5 mg/dL (0.5-1.0)
--- OUTSIDE RECORDS SUMMARY | 2024-05-19 21:26 | XMS_ITS | Continuity of Care Document ---
Author Organization SIMEON Solis DICE MANAGER, [id number] Address [address] [place] [address] Assessment Encounter Date Assessment Date Assessment LastModified by Organization Details LastModified Time 03/16/2024 03/16/2024 Normal annual gynecologic examination. Up-to-date with routine screening tests, particularly with mammogram when done next week. Recommend bone density evaluation in the next year for baseline. Sleep issues, addressed today independently. Not available 03/17/2024 08:40:50 Plan of Treatment Reminders Order Date Submit Date Provider Last Modified By Organization Details Last Modified Time Details Appointments None recorded. Lab None recorded. Referral None recorded. Procedures None recorded. Surgeries None recorded. Imaging None recorded. Medication Orders trazodone 50 mg tablet 2023 024 [facility] [address] [employer], [address] [place], [address], 17:22:57 Patient TargetsNo targets recorded. Patient Instructions Encounter Date Encounter Id Patient Instructions Last Modified By Organization Details Last Modified Time 03/16/2024 [id number] Return in 1 year for annual examination. Trial of trazodone, 50 mg orally at nighttime for sleep. Notify the office for any concerns or issues on trazodone. Bilateral screening 3D mammography next week. Recommend bone density evaluation sometime this year. Call for any concerns or issues in the interim including the onset of abnormal bleeding, any breast concerns. Not available 03/17/2024 08:41:51 I discussed with Loyda her clinical presentation and findings on examination. She did have a normal physical examination today with no abnormalities noted. Loyda has a mammogram scheduled for next week. She will also schedule bone density evaluation for sometime in the next year. Colonoscopy is good until 2028. She will follow-up with her primary care provider for routine general medical needs. A Pap smear will be due next year with cotesting. All questions were answered to the patient's satisfaction, she expressed understanding and agreement with the plan of care - Encouraged breast self-awareness and monthly breast exams. - Recommend mammogram annually - Encouraged regular exercise. - Discussed calcium, vitamin D, and weight bearing exercise for bone health. - Discussed osteoporosis screening guidelines. - Recommend colonoscopy at recommended intervals - Encouraged patient to establish care with a PCP to manage non-SENIOR TAX ANALYST concerns if she does not already have one. - Reviewed current cervical cancer screening guidelines. PAP smear recommendations after age 65 without a history of cervical cancer or severe dysplasia within the last 20 years discussed. - Discussed indications to call or return in the menopausal period including post menopausal bleeding Not available 03/17/2024 08:44:15 Reason for Referral None Reported. Results Created Date Observation Date Name Description Value Unit Range Abnormal Flag Note LastModifiedBy Organization Detail LastModifiedTime 03/31/20 24 03/31/2024 MAMMO , scree corine, tomos ynthe sis, bilat eral No observ ation record ed. [email or web address] [email or web address] [address], [address], 03/31/2024 14:44:44 03/31/20 24 03/31/2024 lay lette r No observ ation record ed. [email or web address] [email or web address] [address], [address], 03/31/2024 14:46:30 Result Notes None recorded. 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 Not Available [facility] 0 01:08:47 Problem Notes None recorded. Procedures Surgical History Date Name Laterality Status Provider Name and Address Organization Details Recorded Time 03/31/20 24 Date of Last Mammogram completed Pa Kaity null, [place] - [employer] [facility] 03/31/2024 14:45:16 07/12/20 22 SLING OPERATION FOR STRESS INCONTINENCE (SURG) completed Flower Saud null, [place] - [employer] [facility] [facility] 07/16/2022 11:23:25 05/10/20 22 Urodynamics: Simple Cystometrogram (UEHRC) [place] [id number] [facility],[address], [place], [address], [place] - [employer] [facility] [facility] 05/13/2022 14:13:39 03/01/20 22 Date of Last Pap Smear completed Yessenia Figueroa null, [place] - [employer] [facility] 03/08/2022 16:45:23 03/04/20 19 Date of Last Colonoscopy completed Nicolle De La Cruz (TERMED) [place], [place] [employer] [facility] 05/11/2021 14:16:00 Laser in situ keratomileusis completed Lieana Mo null, [facility] DICE MANAGER 03/01/2022 10:24:46 endometrial biopsy completed Lieana Mo null, [place] [employer] [facility] 03/01/2022 10:24:46 tooth extraction completed Lieana N eal null, [facility] DICE MANAGER 03/01/2022 10:24:46 tonsillectomy completed Lieana Mo null, [place] - [place] [facility] MANAGER 03/01/2022 10:24:46 Dilation and Curettage completed Sonia Aguilar null, [facility] DICE MANAGER 03/01/2022 09:05:44 Imaging Results None recorded. Procedure Notes None recorded. Medical Equipment None Reported. Allergies Allergen ID Allergen Name Allergen Category Reaction Reaction Severity Criticality Documentation Date Start Date Code Code System Note Provider Name and Address Organization Details Recorded Time 884405 Substance with sulfonami de structure and antibacte rial mechanism of action (substanc e) medicatio n Not available Not available Not available 04/22/2020 25862 8003 SNOMED *Onse t: 1-1-2 009 *Note : 03/12 - hives Not Available [facility] 0 16:56:47 433423 lactose food,medi cation Not available Not available Not available 04/22/2020 6211 RxNorm Not Available [facility] 0 16:56:47 Medications Name Sig Start Date Stop Date Status Note LastModified by Organization Details LastModified Time prednisone 10 mg tablet PLEASE SEE ATTACHED FOR DETAILED DIRECTION S 03/16 completed Not Available Not Available Not Available trazodone 50 mg tablet TAKE 1 TABLET BY MOUTH EVERY DAY AT BEDTIME FOR 30 DAYS 2023 active Not Available Not Available Not Avai lable azithromyci n 250 mg tablet TAKE 2 TABLETS BY MOUTH TODAY, THEN TAKE 1 TABLET DAILY FOR 4 DAYS DIRECTED 03/16 completed Not Available Not Available Not Available benzonatate 200 mg capsule TAKE 1 CAPSULE BY MOUTH THREE TIMES A DAY NEEDED FOR COUGH 03/07 completed Not Available Not Available Not Available tretinoin 0.025 % topical cream APPLY TOPICALLY TO AFFECTED AREA AT NIGHT BEFORE BED 03/16 completed Not Available Not Available Not Available prednisone 20 mg tablet PLEASE SEE ATTACHED FOR DETAILED DIRECTION S 03/16 completed Not Available Not Available Not Available ipratropium bromide 42 mcg (0.06 %) nasal spray INSTILL 2 SPRAY(S) INTRANASA LLY EACH NOSTRIL 4 TIMES A DAY 03/07 completed Not Available Not Available Not Available oxycodone 5 mg tablet 03/07 completed Not Available Not Available Not Available nitrofurant oin monohydrate /macrocryst als 100 mg capsule TAKE 1 CAPSULE BY MOUTH EVERY 12 HOURS FOR 3 DAYS 03/07 completed Not Available Not Available Not Available multivitami n active Not Available Not Available Not Available collagen (bovine) 100 % topical powder in packet active Not Available Not Available Not Available Vitals Date Recorded Body height Body mass index (BMI) Body weight Systolic blood pressure Diastolic blood pressure Provider Name and Address Organization Details Last Updated DateTime 03/16/2024 170.18 cm 21.8 kg/m2 44436.34 g 120 mm[Hg] 78 mm[Hg] Nicolle De La Cruz (TERMED) [employer] Sol[employer] DICE MANAGER 4 14:56:14 Social History Question Answer Notes LastModified by Organizat ion Details LastModified Time Tobacco Smoking Status Former Smoker SIMEON Weber DICE MANAGER 03/01/2022 10:26:47 What Is Your Level Of Alcohol Consumption? Occasional 2dr/wk Information not available 03/01/2022 What Is Your Level Of Caffeine Consumption? Moderate 4c/day Information not available 07/20/2022 Which Illicit Or Recreational Drugs Have You Used? Denies Illicit Substance Abuse Information not available 07/20/2022 Children's Names/ Amanda Salgado Information not available 03/01/2022 History Of Domestic Violence No Denies All Domestic Violence Information not available 04/25/2020 Spouse/Partners Name Jimmy Information not available 03/01/2022 What Is Your Relationship Status? Information not available 03/01/2022 Do You Use Any Illicit Or Recreational Drugs? No Information not available 03/01/2022 Sex: Unknown Functional Status Question Answer Note LastModified by Organizat ion Details LastModified Time What is your exercise level? Occasional Active but no formal exercise Information not available 04/25/2020 Mental Status None recorded. Family History Relationship Description Onset Age of this Age Resolved Age Notes Mother Benign neoplasm of colon Colon Polyp, Benign Mother Family history of breast cancer 67 Cancer Breast Mother Ulcerative colitis U lcerative Colitis Father Primary malignant neoplasm of prostate Prostate Cancer Father Family history of mental disorder Depression Father Benign essential hypertension Hypertension Father Disorder of thyroid gland Thyroid Disease Sister Disorder of thyroid gland Thyroid Disease Maternal Grandmother Disorder of bone and articular cartilage Osteoporosis Paternal Grandmother Family history of Cardiovascular disease Heart disease Medical History Condition Response Hematology-Other Y Urology- Recurrent Urinary Tract Infecti ons Y Gynecological History Statement/Question Response Age at Menarche: 10 HPV Test Negative Date of Last Mammogram 03/31/2024 Date of Last Colonoscopy 03/04/2019 Date of Last Pap Smear 03/01/2022 Date of Last Cholesterol Screening 09/16 Obstetrics History GPAL:G 2 P 2 0 0 2 Type Value Multiple Births 0 Full Term 2 Induced 0 Spontaneous 0 Premature 0 Living 2 Ectopics 0 Total 2 Immunizations Vaccine Type Date Status Provider Name and Address Organization Details Recorded Time Hep A, adult 03/16/2013 completed Janay garza [place] - [employer] [facility] 07/20/2022 15:01:15 COVID-19, mRNA, LNP-S, PF, 100 mcg/0.5mL dose or 50 mcg/0.25mL dose 12/07/2020 completed Janay Leidner null, [place] - [employer] [facility] [facility] 07/20/2022 15:01:15 Influenza, split virus, trivalent, preservative 06/19/2012 completed Janay Leidner [place], [place] [employer] [facility] 07/20/2022 15:01:15 Influenza, split virus, trivalent, preservative 06/18/2013 completed Janay Leidner [place] [employer] [facility] 07/20/2022 15:01:15 Td (adult), 2 Lf tetanus toxoid, preservative free, adsorbed 02/02/2003 completed Janay Leidner null, [place] - [employer] [facility] [facility] 07/20/2022 15:01:15 zoster recombinant 03/09/2019 completed Janay Lei dner null, [place] - [employer] [facility] [facility] 07/20/2022 15:01:15 COVID-19, mRNA, LNP-S, PF, 100 mcg/0.5mL dose or 50 mcg/0.25mL dose 11/09/2020 completed Janay Leidner [place] [employer] [facility] [facility] 07/20/2022 15:01:15 Hep A, adult 08/29/2017 completed Janay Leidner [place] [employer] [facility] [facility] 07/20/2022 15:01:15 Td (adult), 5 Lf tetanus toxoid, preservative free, adsorbed 02/25/2019 completed Janay Leidner [place] [employer] [facility] [facility] 07/20/2022 15:01:16 COVID-19, mRNA, LNP-S, PF, 30 mcg/0.3 mL dose 08/14/2021 completed Janay Leid[place] [employer] [facility] [facility] 07/20/2022 15:01:16 zoster recombinant 07/02/2019 completed Janay Lei dner null, [place] [employer] [facility] [facility] 07/20/2022 15:01:16 Past Encounters Encounter ID Performer Location Encounter Start Date Encounter Closed Date Diagnosis/Indication Diagnosis SNOMED-CT Code Diagnosis ICD10 Code [id number] DENISE VARGAS MD [id number] [facility]_[address] [place] [address] [place] HUN[place] [id number] 03/16/2024 14:42:49 03/17/2024 09:47:40 Gynecologic examination 79947730 Z01.419 Chronic insomnia 5208559 04 F51.04 Health Concerns Section Related Observation LastModified by Organization Detai ls LastModified Time None Recorded Concern Status LastModified by Organization Details LastModified Time None Recorded Payers Encounter Date Sequence Insurance Name Policy Number Policy Escobar Covered Member ID Escobar Member ID Guarantor Name 03/16/2024 1 [place] [id number] Loyda Lucho Jb [id number] Loyda Muhammad Notes Date Note Type Note Provider Name and Address Organization Details Recorded Time 03/16/2024 text/html HPI Notes: Nathalia bran presents to our office today for routine annual gynecologic examination. She voices no specific gynecologic issues or concerns. She does have significant difficulty sleeping, frequently waking up at 2 or 3 AM and finding it hard to fall back asleep. She knows all of the normal healthy sleep habits including avoiding excess fluid and beverages late in the evening, avoiding caffeine, avoiding any type of screen time, using other holistic methods to assist in sleeping. This has been frustrating and a complicating issue for her life. She does have a primary care provider in [facility] who does monitor her routine lab tests. She will be due for a Pap smear with cotesting next year. Mammogram is scheduled for next week. Colonoscopy screening is up-to-date. Patient has not yet had a bone density evaluation. Loyda reports mild menopausal symptoms, hot flashes night sweats but not severe. Her main concern is that of poor sleep quality. She also reports no issues with vaginal dryness or dyspareunia. She is amenorrheic by virtue of a NovaSure endometrial ablation in 2018, and now is likely menopausal hormonally. She did have a mid urethral sling for urinary incontinence in June of 2022. This has provided excellent relief of incontinence which occurs only infrequently and with [place] [address] [facility],[address], [place], [address], [facility] - [employer] 03/17/2024 08:47:16 OBGyn Episode No OBEpisode recorded.
--- OUTSIDE RECORDS SUMMARY | 2024-05-19 21:26 | XMS_ITS | Data Portability ---
Author Organization [facility], [id number] Address [address] [address] Assessment Encounter Date Assessment Date Assessment LastModified by Organization Details LastModified Time 05/10/2022 05/10/2022 Status post limited urodynamics disclosing genuine stress urinary incontinence with a hypermobile urethra. No evidence of urge incontinence or overactive bladder. 45 degree displacement of the urethra with Valsalva. Total time spent in reviewing patient's history and outside records, discussion of patient's concerns, examination, interpreting test results, ordering additional tests, counseling with shared decision making, sending prescriptions if necessary and documentation was 31 minutes. Not available 05/13/2022 14:16:08 07/20/2022 07/20/2022 Postoperative problem visit, vaginal bleeding after mid urethral sling procedure. Source is likely one of the stitches in the anterior vagina that is partially pulled through the mucosa. Incision remains intact and healing well. Total time spent in reviewing patient's history and outside records, discussion of patient's concerns, examination, interpreting test results, ordering additional tests, counseling with shared decision making, sending prescriptions if necessary and documentation was 14 minutes. Not available 07/21/2022 13:10:14 08/15/2022 08/15/2022 Normal postoperative visit after a mid urethral sling procedure. No evidence of postoperative complications. Not available 08/15/2022 17:32:33 03/16/2024 03/16/2024 Normal annual gynecologic examination. Up-to-date with routine screening tests, particularly with mammogram when done next week. Recommend bone density evaluation in the next year for baseline. Sleep issues, addressed today independently. Not available 03/17/2024 08:40:50 Plan of Treatment Reminders Order Date Submit Date Provider Last Modified By Organization Details Last Modified Time Details Appointments None recorded. Lab culture, urine 2021 [facility], [address], [id number], [place], [address], 08:23:44 Referral None recorded. Procedures None recorded. Surgeries sling operation for stress incontinenc e (SURG) 2021 [facility], [address], [place], [address], 07:46:28 Imaging None recorded. Medication Orders trazodone 50 mg tablet 2023 024 [facility] [address] [employer], [address] [place] [address], [address], 17:22:57 Patient TargetsNo targets recorded. Patient Instructions Encounter Date Encounter Id Patient Instructions Last Modified By Organization Details Last Modified Time 05/10/2022 [id number] Consider timing of mid urethral sling procedure. Postoperative limitations and precautions were discussed at some length. Preoperative examination 3 to 4 weeks prior to sling procedure. Not available 05/13/2022 14:14:26 I discussed with Loyda her clinical presentation and findings on examination. She does have genuine stress incontinence with a hypermobile urethra but no other evidence of pelvic floor relaxation. The anterior compartment is adequately's supported, there is no significant uterine prolapse and only minimal rectocele. The Q-tip test was positive for at least 45 degrees of deflection and therefore the patient would be an excellent candidate for a mid urethral sling procedure. The pros, cons, risks, benefits and potential complications were discussed. The patient expressed understanding and agreement with the plan of care. The patient will consider the timing of a mid urethral sling procedure particularly given the restrictions with lifting straining and physical activity after the procedure. She will let us know when she is ready to embark on the mid urethral sling procedure. The procedure itself was discussed including the recovery. All questions were answered the patient expressed understanding and agreement with the plan of care. Not available 05/13/2022 14:15:51 07/20/2022 [id number] Continue postoperative restrictions including avoidance of heavy lifting, no intercourse, no excessive physical activity. Call for recurrent heavy bleeding or ongoing bleeding. Call for any abnormal vaginal drainage purulent discharge fever chills. Not available 07/21/2022 13:08:38 I discussed with Loyda her examination and the source suspected of the vaginal bleeding. The sling remains in excellent position and the anterior vaginal incision is intact. One of the sutures seems to have partially pulled through the vaginal mucosa and this is almost certainly the source of the bleeding. There is no evidence of mesh erosion or mesh projecting through the anterior vaginal incision. The patient will continue to follow activity restrictions, lifting restrictions and abstain from vaginal intercourse. She will return in 5 to 6 weeks for routine postoperative visit. Should she have any recurrent heavy bleeding or any other concern regarding healing from the surgery she will contact our office. All questions were answered to Loyda's satisfaction she expressed understanding and agreement with the plan of care. Not available 07/21/2022 13:10:04 08/15/2022 [id number] Continue activit y and lifting restrictions for an additional 2 weeks. No need to return for any additional postoperative visits. Continue measures to allow for complete emptying when voiding. Call for any concerns or or issues in the ongoing postoperative period. Not available 08/15/2022 17:33:12 I discussed with Loyda her clinical presentation and findings on examination. This was a normal postoperative visit after a mid urethral sling procedure. She is healing very well and there is no evidence of complications including no mesh erosion no infection no bleeding. The patient was given instructions for ongoing activity restrictions and no intercourse for the next 2 weeks. If, following 2 weeks she continues to do well, she may resume activities but at a much reduced level. She should continue to avoid heavy lifting and begin with a slower moderate workout and gradually increase in intensity. She may resume intimacy in 2 weeks. Loyda is doing very well after her sling procedure. We discussed the potential complications postoperatively she expressed understanding and agreement with the plan of care. We also discussed routine healthcare and screening including bilateral mammography, colonoscopy, bone density evaluation and laboratory analysis. Patient's mammogram is up-to-date as is her colonoscopy and Pap smear. Routine lab testing is also discussed. All the patient's questions were answered to her satisfaction she expressed understanding and agreement with the plan of care Not available 08/15/2022 17:36:19 03/16/2024 [id number] Return in 1 year for annual examination. [...] establish care with a PCP to manage non-PLANT HR MANAGER concerns if she does not already have [...] Abnormal Flag Note LastModifiedBy Organization Detail LastModifiedTime 05/10/20 22 05/10/2022 URINE CULTU RE urine culture SEE RESULT S BELOW SPECI MEN SOURC E Urine Urine , Midst ream CULTU RE RESUL TS No Growt h REPOR T STATU S FINAL 05/12 Not Available [address], [place], [address], 05/12/2022 08:23:44 03/28/20 23 03/24/2021 MAMMO , scree corine, tomos ynthe sis, bilat eral, w/ CAD No observ ation record ed. [address] Radiology [address] [facility], [place], [address], 04/23/2024 15:26:10 03/29/20 23 03/29/2023 MAMMO , scree corine, tomos ynthe sis, bilat eral No observ ation record ed. [address] bran [address], [place], [address], 04/23/2024 15:27:17 03/29/20 23 03/29/2023 lay lette r No observ ation record ed. SHALOM [id number] [address], [place], [address], 04/22/2023 10:23:34 03/31/20 24 03/31/2024 MAMMO , scree corine, tomos ynthe sis, bilat eral No observ ation record ed. [place] [id number], [place], [address], 03/31/2024 14:44:44 03/31/20 24 03/31/2024 lay lette r No observ ation record ed. [place] [id number], [place], [address], 03/31/2024 14:46:30 Result Notes Documentation Provider Name and Address Organization Details Recorded Time Mammo, Screening, Tomosynthesis, Bilateral : Mammogram Screening Mammogram Type: 3D Bilateral Radiological Classification: Bi-Rads 2 - Benign Findings ACR Category: d-Extremely dense-lowering sensitivity of mammogram Followup planned: Screening mammogram one year Pa Briceno null, [place] - [facility] 03/31/2024 14:44:45 Problems Name Problem SNOMED Code Status Onset Date Resolution Date Notes Provider Name and Address Organization Details Recorded Time 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 Not Available [facility] 0 01:08:47 Problem Notes None recorded. Procedures Surgical History Date Name Laterality Status Provider Name and Address Organization Details Recorded Time 03/31/20 24 Date of Last Mammogram completed Pa Briceno null, [place] - [facility] 03/31/2024 14:45:16 07/12/20 22 SLING OPERATION FOR STRESS INCONTINENCE (SURG) completed Flower Villavicencio null, [facility] UNIT TENDER 07/16/2022 11:23:25 05/10/20 22 Urodynamics: Simple Cystometrogram (UEHRC) [place] [address] [facility],[address], [place], [address], [facility] - [facility] 05/13/2022 14:13:39 03/01/20 22 Date of Last Pap Smear completed Yessenia Figueroa null, [place] - [facility] 03/08/2022 16:45:23 03/04/20 19 Date of Last Colonoscopy completed Nicolle De La Cruz (TERMED) null, [place] - [place] [facility] T[facility] 05/11/2021 14:16:00 Laser in situ keratomileusis completed Lieana Mo null, [place] - [facility] 03/01/2022 10:24:46 endometrial biopsy completed [facility] Mo null, [facility] 03/01/2022 10:24:46 tooth extraction completed Lieana N eal null, [facility] UNIT TENDER 03/01/2022 10:24:46 tonsillectomy completed Lieana Mo null, [facility] UNIT TENDER 03/01/2022 10:24:46 Dilation and Curettage completed Sonia Aguilar null, [facility] UNIT TENDER 03/01/2022 09:05:44 Imaging Results Imaging Date Name Status LastModified by [facility] Details LastModified Time 03/24/2021 MAMMO, screening, tomosynthesis, bilateral, w/ CAD completed [email or web address] [facility] [address] [facility], [place], [address], 04/23/2024 15:26:10 03/29/2023 MAMMO, screening, tomosynthesis, bilateral completed [email or web address] [email or web address] [address], [place], [address], 04/23/2024 15:27:17 03/29/2023 lay letter completed SHALOM [id number] e_b [address], [place], [address], 04/22/2023 10:23:34 03/31/2024 MAMMO, screening, tomosynthesis, bilateral completed [email or web address] [id number] [address], [place], [address], 03/31/2024 14:44:44 03/31/2024 lay letter completed [email or web address] [id number] e_b [address], [place], [address], 03/31/2024 14:46:30 Procedure Notes None recorded. Medical Equipment None Reported. Allergies Allergen ID Allergen Name Allergen Category Reaction Reaction Severity Criticality Documentation Date Start Date Code Code System Note Provider Name and Address Organization Details Recorded Time 375940 Substance with sulfonami de structure and antibacte rial mechanism of action (substanc e) medicatio n Not available Not available Not available 04/22/2020 20377 8003 SNOMED *Onse t: 1-1-2 009 *Note : 03/12 - hives Not Available [facility] 16:56:47 796739 lactose food,medi cation Not available Not available Not available 04/22/2020 6211 RxNorm Not Available [facility] 16:56:47 Medications Name Sig Start [...] and Address Organization Details Last Updated DateTime 07/20/2022 170.18 cm 21.8 kg/m2 28932.78 g 110 mm[Hg] 68 mm[Hg] Janay Solis [facility]IT TEND[facility] 2 15:04:13 Date Recorded Body height Systolic blood pressure Diastolic blood pressure Provider Name and Address Organization Details Last Updated DateTime 08/15/2022 170.18 cm 110 mm[Hg] 72 mm[Hg] Beverly Walker(TER M) [facility] UNIT TENDER 08/15/2022 16:11:29 Date Recorded Body height Body mass index (BMI) Body weight Systolic blood pressure Diastolic blood pressure Provider Name and Address Organization Details Last Updated DateTime 03/07/2023 170.18 cm 22.2 kg/m2 35156.12 g 128 mm[Hg] 80 mm[Hg] Nicolle De La Cruz (TERMED) [facility] UNIT TENDER 3 09:48:35 Date Recorded Body height Body mass index (BMI) Body weight Systolic blood pressure Diastolic blood pressure Provider Name and Address Organization Details Last Updated DateTime 03/16/2024 170.18 cm 21.8 kg/m2 85260.34 g 120 mm[Hg] 78 mm[Hg] Nicolle De La Cruz (TERMED) [facility] UNIT TENDER 4 14:56:14 Social History Question Answer Notes LastModified by [employer] Details LastModified Time Tobacco Smoking Status Former Smoker Sonia garza [facility] UNIT TENDER 03/01/2022 10:26:47 What Is Your Level Of [...] Hep A, adult 03/16/2013 completed Janay garza [facility] UNIT TENDER 07/20/2022 15:01:15 COVID-19, mRNA, LNP-S, PF, 100 mcg/0.5mL dose or 50 mcg/0.25mL dose 12/07/2020 completed Janay garza [facility] UNIT TENDER 07/20/2022 15:01:15 Influenza, split virus, trivalent, preservative 06/19/2012 completed Janay garza, [facility] UNIT TENDER 07/20/2022 15:01:15 Influenza, split virus, trivalent, preservative 06/18/2013 completed Janay garza, [facility] UNIT TENDER 07/20/2022 15:01:15 Td (adult), 2 Lf tetanus toxoid, preservative free, adsorbed 02/02/2003 completed Janay garza [facility] UNIT TENDER 07/20/2022 15:01:15 zoster recombinant 03/09/2019 completed Janay garza [facility]IT TENDER 07/20/2022 15:01:15 COVID-19, mRNA, LNP-S, PF, 100 mcg/0.5mL dose or 50 mcg/0.25mL dose 11/09/2020 completed Janay Villeda null, [place] - [facility] 07/20/2022 15:01:15 Hep A, adult 08/29/2017 completed Janay Villeda [place], [place] - [facility] 07/20/2022 15:01:15 Td (adult), 5 Lf tetanus toxoid, preservative free, adsorbed 02/25/2019 completed Janay Villeda null, [place] - [facility] 07/20/2022 15:01:16 COVID-19, mRNA, LNP-S, PF, 30 mcg/0.3 mL dose 08/14/2021 completed Janay Villeda null, [place] - [facility] 07/20/2022 15:01:16 zoster recombinant 07/02/2019 completed Janay botello null, [place] - [facility] 07/20/2022 15:01:16 Past Encounters Encounter ID Performer Location Encounter Start Date Encounter Closed Date Diagnosis/Indication Diagnosis SNOMED-CT Code Diagnosis ICD10 Code [id number] MD ANA JOINER004_SOU [place] ,[facility] [address] [facility] [address] 03/01/2022 10:15:18 03/01/2022 11:25:18 Gynecologic examination 77854567 Z01.419 Female str ess incontinence 79404455 N39.3 [id number] MD ANA CLINE004_[address] ,[facility] [address] [place] [address] 03/02/2022 14:27:35 03/06/2022 12:40:17 Female stress incontinence 99795858 N39.3 [id number] DENISE VARGAS MD [id number] [place]_ED [address] [address] 05/10/2022 11:26:22 05/16/2022 13:36:22 Urinary incontinence 995701670 R[address] ress incontinence 47172484 N39.3 Urethral hypermobility 7754059247 9108 N36.41 [id number] DENISE VARGAS MD [id number] [place]_ED [place] [address] [place] [address],[address] [place]I [address] 07/20/2022 14:55:08 07/24/2022 16:07:40 Postoperative complication 435507471 T81.9XXS Heavy epis ode of vaginal bleeding 295866326 N93.9 [id number] MD ANA CLINE004_[place]_[address] ,[address] [facility] [place] [address] 08/15/2022 16:08:09 08/15/2022 17:54:41 Female stress incontinence 14184874 N39.3 [id number] MD ANA JOINER004_[address] [place] ,[address] [place] [address] 03/07/2023 09:42:19 03/07/2023 10:43:36 Gynecologic examination 84857227 Z01.419 Increased frequency of urination 217051402 R35.0 [id number] DENISE VARGAS MD AW957_PZY [place] ,[address] [place] [address] 03/16/2024 14:42:49 03/17/2024 09:47:40 Gynecologic examination 28377161 Z01.419 Chronic insomnia 3827554 04 F51.04 Health Concerns Section Related Observation LastModified by Organization Detai ls LastModified Time None Recorded Concern Status LastModified by Organization Details LastModified Time None Recorded Advance Directives Directive None Recorded Payers Encounter Date Sequence Insurance Name Policy Number Policy Escobar Covered Member ID Escobar Member ID Guarantor Name 05/10/2022 1 [place] [id number] Loyda Muhammad [id number] Loyda Muhammad 07/20/2022 1 [place] [id number] Loyda Muhammad [id number] Loyda Yepez Jb 08/15/2022 1 [place] [id number] Loyda Lucho Jb [id number] Loyda E Jb 03/07/2023 1 [place] [id number] Loyda Lucho Jb [id number] Loyda E Jb 03/16/2024 1 [place] [id number] Loyda Lucho Jb [id number] Loyda E Jb Notes Date Note Type Note Provider Name and Address Organization Details Recorded Time 05/10/2022 text/html HPI Notes: Nathalia bran presents her office today for evaluation of stress incontinence. She has developed rather progressive urinary leakage with any provocative measures such as laughing coughing or sneezing. She has had 2 previous vaginal deliveries. The patient reports a particularly in the last year or 2 her incontinence has become more bothersome. It is started to limit her activities which is very problematic as the patient is very active. She had no evidence or history that would suggest an overactive bladder or urge incontinence. For this reason, she was scheduled for limited urodynamics to confirm the stress etiology. The patient is not particularly prone [place] recurrent [place] [address], [place], [address], [facility] UNIT TENDER 05/13/2022 14:16:22 07/20/2022 text/html HPI Notes: Mrs. Phipps presents her office today for a postoperative problem visit. She underwent a transobturator tape? Obtryx mid urethral sling on July 12, 2022. The surgery was uncomplicated and she was discharged voiding normally without a Jama catheter. Mrs. Phipps reports that she had some light spotting the days following surgery but after having a moderately difficult bowel movement and straining somewhat, she experiences some fairly heavy vaginal bleeding, bright red that was likely 3 to 4 ounces. This heavier bleeding resolved and she now has had just persistent light spotting or light bleeding when she wipes after voiding. She is experienced no pain no cramping no fever or chills. Given this bleeding, she contacted the office and she was encouraged to present [place] [address], [place], [address], [facility] UNIT TEND[facility] 07/21/2022 13:11:24 08/15/2022 text/html HPI Notes: Nathalia bran presents to our office today for a postoperative visit. On July 06, 2022 she underwent a transobturator tape? optics mid urethral sling procedure and cystoscopy. This was done at the [facility]. There were no intraoperative complications and the sling was in excellent position. Loyda then called 2 weeks after surgery reporting some vaginal bleeding. She was examined and was felt to have a pulled stitch on the anterior vaginal closure. Reassurance was given, instructions discussed, activity level reviewed the patient was to present in a month for a final postop visit. Loyda reports that of late she has been doing very well. She does have to make sure that she is completely emptying when voiding but has otherwise had no issues. She has not had any urinary incontinence but she has not actually performed any provocative measures or increased activity. She is anxious to find out when she is able to increase her exercise and ability [place] [address] [facility],[address], [place], [address], [facility] UNIT TENDER 08/15/2022 17:36:59 03/07/2023 text/html HPI Notes: Jack l Postmenopausal ([facility]) Reported by patient. Patient Relationship To Practice: established patient Current Medical History: no active medical problems Menopausal Symptoms: not present Vaginal Bleeding: no Sexually Active: Yes: same partner Mammogram: due Pap Smear +/- HPV Cotesting: up-to-date Colonoscopy: up-to-date Pt has 6 cups of coffee [place] [address] [facility],[address], [place], [address], [facility] UNIT TENDER 03/07/2023 10:16:51 03/16/2024 text/html HPI Notes: Nathalia bran presents [...] does have a primary care provider in [facility] who does monitor her routine lab [...] typically a [place] [address] [facility],[address], [place], [address], [facility] - [facility] 03/17/2024 08:47:16 OBGyn Episode No OBEpisode recorded.
--- OUTSIDE RECORDS SUMMARY | 2024-05-19 21:26 | XMS_ITS | Clinical Summary ---
Author Organization [employer] Address [place], [place] [address] Care Team Providers Care Auto Travel Counselor Name Role Phone Angelo Musa Primary Care Provider [phone] Allergies Active Allergy Reactions Criticality Noted Date [...] age to complete this topic Care Teams Auto Travel Counselor Relationship Specialty Start Date End Date Angelo Musa PA [facility] - General 01/23/10
--- OUTSIDE RECORDS SUMMARY | 2024-05-19 21:26 | XMS_ITS | Clinical Summary ---
[facility] Address [address] [place] [address] Care Team Providers Care Senior Sous Chef Name Role Phone Erika Tello PA-C Primary Care Provider [phone] Source Comments You are receiving this document as you are listed as the primary care provider,follow-up provider, or the patient has been referred to you for consultation.This is in compliance with the Medicare and[facility] E[facility] Incentive [facility],which states Providers who transition their patient to another setting of careor provider of care or refers their patient to another provider of care shouldprovide summary care record for each transition of care or referral. [facility] Allergies Active Allergy Reactions Criticality Noted Date [...] times a day. Active Cholecalciferol (VITAMIN D3) 81045 UNITS Active predniSONE (DELTASONE) 10 MG tablet [...] Comments Blood Pressure 138/79 08/29/2017 5:02 PM TIRE RECAPPING MACHINE OPERATOR Pulse 86 08/29/2017 5:02 PM TIRE RECAPPING MACHINE OPERATOR Temperature 36.4 ??C (97.6 ??F) 08/24/2023 2:08 PM CS T Respiratory Rate 16 08/29/2017 8:07 AM TIRE RECAPPING MACHINE OPERATOR Oxygen Saturation - - Inhaled Oxygen Concentration - - Weight 61.2 kg (135 lb) 08/24/2023 2:08 PM TIRE RECAPPING MACHINE OPERATOR Height 170.2 cm (5' 7) 08/24/2023 2:08 PM TIRE RECAPPING MACHINE OPERATOR Body Mass Index 21.14 08/24/2023 2:08 PM TIRE RECAPPING MACHINE OPERATOR Plan of Treatment Health Maintenance Due Date [...] Procedure Name Priority Date/Time Associated Diagnosis Comments LIPID PANEL & DIRECT LDL (IF NEEDED) Routine 08/29/2017 9:11 AM TIRE RECAPPING MACHINE OPERATOR Encounter for screening for lipoid disorders from Last 3 Months or Most Recently Relevant to Health Maintenance Results * (ABNORMAL) Lipid Panel and Direct LDL(If Needed) (08/29/2017 9:11 AM TIRE RECAPPING MACHINE OPERATOR) Cholesterol 245(H) 0 - 199 mg/dL PN SOFT Triglycerides 90 4 - 149 mg/dL PN SOFT HDL Cholesterol 84 >39 mg/dL PN SOFT Cholesterol/HDL Ratio Screen 2.9 PN SOFT LDL Calculated 143(H) 19 - 130 mg/dL PN SOFT Non HDL Chol, Calc 161(H) 0 - 130 mg/dL PN SOFT Hours Fasting 12.0 PN SOFT 08/29/2017 9:11 AM TIRE RECAPPING MACHINE OPERATOR 08/29/2017 11:25 AM TIRE RECAPPING MACHINE OPERATOR Narrative PN SOFT - 08/29/2017 11:59 AM TIRE RECAPPING MACHINE OPERATOR Performed at [facility] ([facility] [address] [place] [address] CLIA number [id number] Erika Tello PA-C LAB_1 PN SOFT [address] [place] [address] from Last 3 Months or Most Recently Relevant to Health Maintenance Care Teams Senior Sous Chef Relationship Specialty Start Date End Date Erika Tello PA-C [address] [place] [address] PCP - General Physician Meat Cooler 08/19/17
--- OUTSIDE RECORDS SUMMARY | 2024-05-19 21:26 | XMS_ITS | Clinical Summary ---
Author Organization [facility] Address [address] [place] [address] Care Team Providers Care Iron Pellet Tester Name Role Phone Diana Mccoy MD Primary [...] Recently Relevant to Health Maintenance Care Teams Iron Pellet Tester Relationship Specialty Start Date End Date Diana Mccoy MD [address] [place] [address] PCP - General aircraft magneto mechanic 05/12/12
--- OUTSIDE RECORDS SUMMARY | 2024-05-19 21:26 | XMS_ITS | Referral Summary ---
Author Organization [facility] Address [address] [place] [address] Care Team Providers Care Spiritual Minister Name Role Phone Diana Mccoy MD Primary [...] Recently Relevant to Health Maintenance Care Teams Spiritual Minister Relationship Specialty Start Date End Date Diana Mccoy MD [address] [place] [address] PCP - General guide changer 05/12/12
[2024-05-19 21:42] VITALS: BP 151/98; PULSE 61; RESP 16; O2SAT 98
[2024-05-19] MEDS: ASPIRIN 81 MG TAB.CHEW PO (22:16)
[2024-05-19 22:39] VITALS: BP 150/90; PULSE 71; RESP 16; TEMP 36.7; O2SAT 98
== END 2024-05-19 22:41 | disposition home or self-care (01) ==
PROVIDERS: Emergency Provider Family Medicine; PCP Physician Assistant Medical
DX: R42 Dizziness and giddiness (principal); R03.0 Elevated blood-pressure reading, without diagnosis of hypertension
CPT/HCPCS: 36415; 70450; 70496; 70498; 80053; 83735; 85025; 86140; 93005; 94761; 99284; 99285; A9270; Q9967

== ENCOUNTER 2024-05-25 13:33 | Outpatient (CLI) | payer BC, SELFPAY ==
--- OUTSIDE RECORDS SUMMARY | 2024-05-25 13:36 | XMS_ITS | Referral Summary ---
Author Organization [facility] Address [address] [place] [address] Care Team Providers Care Skin Care Technician Name Role Phone Diana Mccoy MD Primary [...] Recently Relevant to Health Maintenance Care Teams Skin Care Technician Relationship Specialty Start Date End Date Diana Mccoy MD [address] [place] [phone] PCP - General buttonhole maker 05/12/12
--- OUTSIDE RECORDS SUMMARY | 2024-05-25 13:36 | XMS_ITS | Continuity of Care Document ---
Author Organization [facility]SE [facility]ACTITION[facility], [id number] Address [address] [facility] [address] [place] [address] Assessment Encounter Date Assessment Date Assessment LastModified [...] Orders trazodone 50 mg tablet 2023 024 [facility] [address] [employer], [address] [place], [address], 17:22:57 Patient TargetsNo targets recorded. Patient Instructions Encounter Date Encounter Id Patient Instructions Last Modified By Organization Details Last Modified Time 03/16/2024 [id number] Return in 1 year for annual examination. [...] establish care with a PCP to manage non-NEGATIVE RETOUCHER concerns if she does not already have [...] eral No observ ation record ed. [email or web address] [id number] [address], [address], 03/31/2024 14:44:44 03/31/20 24 03/31/2024 lay lette r No observ ation record ed. [email or web address] [id number] [address], [address], 03/31/2024 14:46:30 Result Notes None recorded. 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 Not Available [facility] 0 01:08:47 Problem Notes None recorded. Procedures Surgical History Date Name Laterality Status Provider Name and Address Organization Details Recorded Time 03/31/20 24 Date of Last Mammogram completed Pa Kaity null, [place] - [facility] 03/31/2024 14:45:16 07/12/20 22 SLING OPERATION FOR STRESS INCONTINENCE (SURG) completed [place] null, [place] - [facility]ACTITION[facility] 07/16/2022 11:23:25 05/10/20 22 Urodynamics: Simple Cystometrogram (UEHRC) [place] [address] [facility],[address], [place], [address], [place] - [facility]ACTITION[facility] 05/13/2022 14:13:39 03/01/20 22 Date of Last Pap Smear completed Yessenia Figueroa null, [place] - [facility]ACTITION[facility] 03/08/2022 16:45:23 03/04/20 19 Date of Last Colonoscopy completed Nicolle DeL a Cruz (TERMED) null, [place] - [facility]ACTITION[facility] 05/11/2021 14:16:00 Laser in situ keratomileusis completed Lieana Mo null, [facility] PRACTITION[facility] 03/01/2022 10:24:46 endometrial biopsy completed Lieana Mo null, [place] - [facility]ACTITION[facility] 03/01/2022 10:24:46 tooth extraction completed Lieana N eal null, [facility] POST ACUTE CARE NURSE PRACTITIONER 03/01/2022 10:24:46 tonsillectomy completed Lieana Mo null, [place] - [facility] N[facility]SE PRACTITIONER 03/01/2022 10:24:46 Dilation and Curettage completed Sonia Aguilar null, [facility] POST ACUTE CARE NURSE PRACTITIONER 03/01/2022 09:05:44 Imaging Results None recorded. Procedure Notes None recorded. Medical Equipment None Reported. Allergies Allergen ID Allergen Name Allergen Category Reaction Reaction Severity Criticality Documentation Date Start Date Code Code System Note Provider Name and Address Organization Details Recorded Time 689538 Substance with sulfonami de structure and antibacte rial mechanism of action (substanc e) medicatio n Not available Not available Not available 04/22/2020 24732 8003 SNOMED *Onse t: 1-1-2 009 *Note : 03/12 - hives Not Available [facility] 0 16:56:47 921321 lactose food,medi cation Not available Not available Not available 04/22/2020 6211 RxNorm Not Available [facility] 0 16:56:47 Medications Name Sig Start [...] Updated DateTime 03/16/2024 170.18 cm 21.8 kg/m2 97812.34 g 120 mm[Hg] 78 mm[Hg] Nicolle De La Cruz (TERMED) [facility]ACT[facility] 4 14:56:14 Social History Question Answer Notes LastModified by Organizat ion Details LastModified Time Tobacco Smoking Status Former Smoker [facility] N[facility]SE PRACTITIONER 03/01/2022 10:26:47 What Is Your Level Of [...] disease Heart disease Medical History Condition Response Urology- Recurrent Urinary Tract Infecti ons Y Hematology-Other Y Gynecological History Statement/Question Response Age at [...] 03/16/2013 completed Janay garza [place] - [facility]ACT[facility] 07/20/2022 15:01:15 COVID-19, mRNA, LNP-S, PF, 100 mcg/0.5mL dose or 50 mcg/0.25mL dose 12/07/2020 completed Janay Leidner null, [place] - [facility]ACTITION[facility] 07/20/2022 15:01:15 Influenza, split virus, trivalent, preservative 06/19/2012 completed Janay Leidner null, [place] [facility]ACTITION[facility] 07/20/2022 15:01:15 Influenza, split virus, trivalent, preservative 06/18/2013 completed Janay Leid[place], [place] [facility]ACT[facility] 07/20/2022 15:01:15 Td (adult), 2 Lf tetanus toxoid, preservative free, adsorbed 02/02/2003 completed Janay Leidner null, [place] [facility]ACT[facility] 07/20/2022 15:01:15 zoster recombinant 03/09/2019 completed Janay Lei dner null, [place] [facility]ACT[facility] 07/20/2022 15:01:15 COVID-19, mRNA, LNP-S, PF, 100 mcg/0.5mL dose or 50 mcg/0.25mL dose 11/09/2020 completed Janay Leidner null, [place] [facility]ACTITION[facility] 07/20/2022 15:01:15 Hep A, adult 08/29/2017 completed Janay [place]id[place], [place] [facility]ACT[facility] 07/20/2022 15:01:15 Td (adult), 5 Lf tetanus toxoid, preservative free, adsorbed 02/25/2019 completed Janay Leid[place] null, [place] [facility]ACTITION[facility] 07/20/2022 15:01:16 COVID-19, mRNA, LNP-S, PF, 30 mcg/0.3 mL dose 08/14/2021 completed Janay Leidner null, [place] [facility]ACTITION[facility] 07/20/2022 15:01:16 zoster recombinant 07/02/2019 completed Janay Lei dner null, [place] [facility]ACTITION[facility] 07/20/2022 15:01:16 Past Encounters Encounter ID Performer Location Encounter Start Date Encounter Closed Date Diagnosis/Indication Diagnosis SNOMED-CT Code Diagnosis ICD10 Code [id number] DENISE VARGAS MD [id number] [facility]_[address] [place] ,[address] [facility] [id number] 03/16/2024 14:42:49 03/17/2024 09:47:40 Gynecologic examination 27426305 Z01.419 Chronic insomnia 1242500 04 F51.04 Health Concerns Section Related Observation LastModified by Organization Detai ls LastModified Time None Recorded Concern Status LastModified by Organization Details LastModified Time None Recorded Payers Encounter Date Sequence Insurance Name Policy Number Policy Escobar Covered Member ID Escobar Member ID Guarantor Name 03/16/2024 1 [place] [id number] Loyda Lucho Jb [id number] Loyda Muhammad Notes Date Note Type Note [...] does have a primary care provider in [facility] who does monitor her routine lab tests. [...] [place] [id number] [facility],[address], [place], [address], [facility] - [facility] CARE NURSE PRACTITIONER 03/17/2024 08:47:16 OBGyn Episode No OBEpisode recorded.
--- OUTSIDE RECORDS SUMMARY | 2024-05-25 13:36 | XMS_ITS | Clinical Summary ---
Author Organization [facility] Address [address] [place] [address] Care Team Providers Care Test Cell Technician Name Role Phone Diana Mccoy MD [...] YEARLY PREVENTIVE VISIT 03/01/2023 03/01/20, 02/28/2022, 08/29/2017 PHQ-2 (once per calendar year) 2023 MAMMO SCREENING 03/22/2024 03/22/2022, 07/0 05/2021, 03/21/2021, Additional history exists COVID-19 Vaccine ( season) 2024 08/14/2021, 12/07/2020, 11/09/2020 INFLUENZA VACCINE (#1) 2024 3, 06/19/2012, 06/19/2012 [...] Recently Relevant to Health Maintenance Care Teams Test Cell Technician Relationship Specialty Start Date End Date Diana Mccoy MD [address] [place] [address] PCP - General member of parliament 05/12/12
--- OUTSIDE RECORDS SUMMARY | 2024-05-25 13:36 | XMS_ITS | Clinical Summary ---
[facility] Address [address] [place] [address] Care Team Providers Care Sign Painter Helper Name Role Phone Erika Tello PA-C Primary Care Provider [phone] Source Comments You are receiving this document as you are listed as the primary care provider,follow-up provider, or the patient has been referred to you for consultation.This is in compliance with the Medicare and[facility] EHR Incentive Program,which states Providers who transition their patient to another setting of careor provider of care or refers their patient to another provider of care shouldprovide summary care record for each transition of care or referral. [facility] Allergies Active Allergy Reactions Criticality Noted Date [...] times a day. Active Cholecalciferol (VITAMIN D3) 47752 UNITS Active predniSONE (DELTASONE) 10 MG tablet [...] Comments Blood Pressure 138/79 08/29/2017 5:02 PM ENGINEER FIRST ASSISTANT Pulse 86 08/29/2017 5:02 PM ENGINEER FIRST ASSISTANT Temperature 36.4 ??C (97.6 ??F) 08/24/2023 2:08 PM CS T Respiratory Rate 16 08/29/2017 8:07 AM ENGINEER FIRST ASSISTANT Oxygen Saturation - - Inhaled Oxygen Concentration - - Weight 61.2 kg (135 lb) 08/24/2023 2:08 PM ENGINEER FIRST ASSISTANT Height 170.2 cm (5' 7) 08/24/2023 2:08 PM ENGINEER FIRST ASSISTANT Body Mass Index 21.14 08/24/2023 2:08 PM ENGINEER FIRST ASSISTANT Plan of Treatment Health Maintenance Due Date Last Done Comments Colon Cancer Screening Plan Due 1968 Hep C Screening (Preventive Services) 1968 HIV Screening (Preventive Services) 1984 HepB (1) 1987 Adult Preventive Visit 08/29/2018 08/29/2017 Cervical Cancer Screening 09/16/20192016 (Completed) Cholesterol 08/29/2022 08/29/2017 Mammogram 03/22/2023 03/22/2022, 10/01/2016, 04/19/2016 COVID-19 Vaccine (4 - 3-2 4 season) 2024 08/14/2021, 12/07/2020, 11/09/2020 Influenza (#1) 2024 06/18/2013, [...] LDL (IF NEEDED) Routine 08/29/2017 9:11 AM ENGINEER FIRST ASSISTANT Encounter for screening for lipoid disorders from Last 3 Months or Most Recently Relevant to Health Maintenance Results * (ABNORMAL) Lipid Panel and Direct LDL(If Needed) (08/29/2017 9:11 AM ENGINEER FIRST ASSISTANT) Cholesterol 245(H) 0 - 199 mg/dL PN SOFT Triglycerides 90 4 - 149 mg/dL PN SOFT HDL Cholesterol 84 >39 mg/dL PN SOFT Cholesterol/HDL Ratio Screen 2.9 PN SOFT LDL Calculated 143(H) 19 - 130 mg/dL PN SOFT Non HDL Chol, Calc 161(H) 0 - 130 mg/dL PN SOFT Hours Fasting 12.0 PN SOFT 08/29/2017 9:11 AM ENGINEER FIRST ASSISTANT 08/29/2017 11:25 AM ENGINEER FIRST ASSISTANT Narrative PN SOFT - 08/29/2017 11:59 AM ENGINEER FIRST ASSISTANT Performed at [facility], [address] [place] [address] CLIA number [id number] Erika Tello PA-C LAB_1 PN SOFT [address] [place] [address] from Last 3 Months or Most Recently Relevant to Health Maintenance Care Teams Sign Painter Helper Relationship Specialty Start Date End Date Erika Tello PA-C [address] [place] [address] PCP - General Physician Kiln Worker 08/19/17
--- OUTSIDE RECORDS SUMMARY | 2024-05-25 13:36 | XMS_ITS | Clinical Summary ---
Author Organization [employer] [facility] [employer] Address [place], [place] [address] Care Team Providers Care Data Capture Specialist Name Role Phone Angelo Musa Primary Care Provider [phone] Allergies Active Allergy Reactions Criticality Noted Date [...] Date Diagnosed Date Routine health maintenance 01/24/2010 Overview (01/24/2010): Last Breast Exam 04/12/09 Last Cholesterol 04/12/09 [...] COVID-19 vaccine series ( - 2022- season) 2024 Influenza for age 50-64 05/17/2024 Pneumococcal series for age 6-64 Aged Out No longer eligible based on patient's age to complete this topic Care Teams Data Capture Specialist Relationship Specialty Start Date End Date Angelo Musa PA [facility] - General 01/23/10
--- OUTSIDE RECORDS SUMMARY | 2024-05-25 13:36 | XMS_ITS | Data Portability ---
Author Organization S[facility] [place], [id number] Address [address] [address] Assessment Encounter Date Assessment Date Assessment LastModified [...] Appointments None recorded. Lab culture, urine [facility], [address] [facility] [address], [address], [place], [address], 08:23:44 Referral None recorded. Procedures None recorded. Surgeries sling operation for stress incontinenc e (SURG) 2021 [facility], [facility], [address], [place], [address], 07:46:28 Imaging None recorded. Medication Orders trazodone 50 mg tablet 2023 024 [facility] [address] [employer], [address] [place] [address], [address], 17:22:57 Patient TargetsNo targets recorded. Patient Instructions Encounter Date Encounter Id Patient Instructions Last Modified By Organization Details Last Modified Time 05/10/2022 [id number] Consider timing of mid urethral sling procedure. [...] of care. Not available 05/13/2022 14:15:51 07/20/2022 [id number] Continue postoperative restrictions including avoidance of heavy [...] of care. Not available 07/21/2022 13:10:04 08/15/2022 [id number] Continue activit y and lifting restrictions for [...] of care Not available 08/15/2022 17:36:19 03/16/2024 [id number] Return in 1 year for annual examination. [...] establish care with a PCP to manage non-CLAY WASHER concerns if she does not already have [...] T STATU S FINAL 05/12 Not Available [address], [place], [address], 05/12/2022 08:23:44 03/28/20 23 03/24/2021 MAMMO , scree corine, tomos ynthe sis, bilat eral, w/ CAD No observ ation record ed. [address] Radiology [address] [facility], [place], [address], 04/23/2024 15:26:10 03/29/20 23 03/29/2023 MAMMO , scree corine, tomos ynthe sis, bilat eral No observ ation record ed. [address]_chong bran [address], [place], [address], 04/23/2024 15:27:17 03/29/20 23 03/29/2023 lay lette r No observ ation record ed. SHALOM [id number] [address], [place], [address], 04/22/2023 10:23:34 03/31/20 24 03/31/2024 MAMMO , scree corine, tomos ynthe sis, bilat eral No observ ation record ed. [place] [address] [id number] [address], [place], [address], 03/31/2024 14:44:44 03/31/20 24 03/31/2024 lay lette r No observ ation record ed. [place] [address] [id number] [address], [place], [address], 03/31/2024 14:46:30 Result Notes Documentation Provider Name and Address Organization Details Recorded Time Mammo, Screening, Tomosynthesis, Bilateral : Mammogram Screening Mammogram Type: 3D Bilateral Radiological Classification: Bi-Rads 2 - Benign Findings ACR Category: d-Extremely dense-lowering sensitivity of mammogram Followup planned: Screening mammogram one year [facility]riceno null[facility] [place] [facility] 03/31/2024 14:44:45 Problems Name Problem SNOMED Code Status Onset Date Resolution Date Notes Provider Name and Address Organization Details Recorded Time Blood coagulatio n disorder 36591650 Active Factor 12 Deficiency Pt was diagnosed at age 10. Not Available [facility] 0 01:08:47 Problem Notes None recorded. Procedures Surgical History Date Name Laterality Status Provider Name and Address Organization Details Recorded Time 03/31/20 24 Date of Last Mammogram completed Pa Briceno null, [place] [facility] 03/31/2024 14:45:16 07/12/20 22 SLING OPERATION FOR STRESS INCONTINENCE (SURG) completed Flower Villavicencio null, [facility] 07/16/2022 11:23:25 05/10/20 22 Urodynamics: Simple Cystometrogram (UEHRC) [place] [address] [facility],[address], [place], [address], [facility] 05/13/2022 14:13:39 03/01/20 22 Date of Last Pap Smear completed Yessenia Figueroa null[place] [facility] 03/08/2022 16:45:23 03/04/20 19 Date of Last Colonoscopy completed Nicolle De La Cruz (TERMED) [place], [place] [facility] 05/11/2021 14:16:00 Laser in situ keratomileusis completed Lie[facility] Mo [place] [facility] 03/01/2022 10:24:46 endometrial biopsy [facility] null[facility] 03/01/2022 10:24:46 tooth extraction completed Lieana N eal null, [facility] 03/01/2022 10:24:46 tonsillectomy completed Lieana Mo null, [facility] 03/01/2022 10:24:46 Dilation and Curettage completed Sonia Aguilar null, [facility] 03/01/2022 09:05:44 Imaging Results Imaging Date Name Status LastModified by [facility] Details LastModified Time 03/24/2021 MAMMO, screening, tomosynthesis, bilateral, w/ CAD completed [email or web address] [facility] [address] [facility], [place], [address], 04/23/2024 15:26:10 03/29/2023 MAMMO, screening, tomosynthesis, bilateral completed [email or web address]_d [address], [place], [address], 04/23/2024 15:27:17 03/29/2023 lay letter completed SHALOM [email or web address] e_b [address], [place], [address], 04/22/2023 10:23:34 03/31/2024 MAMMO, screening, tomosynthesis, bilateral completed [email or web address] [email or web address]_w [address], [place], [address], 03/31/2024 14:44:44 03/31/2024 lay letter completed [email or web address] e_b [address], [place], [address], 03/31/2024 14:46:30 Procedure Notes None recorded. Medical Equipment None Reported. Allergies Allergen ID Allergen Name Allergen Category Reaction Reaction Severity Criticality Documentation Date Start Date Code Code System Note Provider Name and Address Organization Details Recorded Time 006274 Substance with sulfonami de structure and antibacte rial mechanism of action (substanc e) medicatio n Not available Not available Not available 04/22/2020 49411 8003 SNOMED *Onse t: 1-1-2 009 *Note : 03/12 - hives Not Available [facility] 16:56:47 830090 lactose food,medi cation Not available Not available Not available 04/22/2020 6211 RxNorm Not Available [facility] 16:56:47 Medications Name Sig Start Date [...] Updated DateTime 07/20/2022 170.18 cm 21.8 kg/m2 39332.78 g 110 mm[Hg] 68 mm[Hg] Janay Solis [facility] 2 15:04:13 Date Recorded Body height Systolic blood pressure Diastolic blood pressure Provider Name and Address Organization Details Last Updated DateTime 08/15/2022 170.18 cm 110 mm[Hg] 72 mm[Hg] Beverly Walker(TER M) [facility] 08/15/2022 16:11:29 Date Recorded Body height Body mass index (BMI) Body weight Systolic blood pressure Diastolic blood pressure Provider Name and Address Organization Details Last Updated DateTime 03/07/2023 170.18 cm 22.2 kg/m2 33594.12 g 128 mm[Hg] 80 mm[Hg] Nicolle De La Cruz (TERMED) [facility] 3 09:48:35 Date Recorded Body height Body mass index (BMI) Body weight Systolic blood pressure Diastolic blood pressure Provider Name and Address Organization Details Last Updated DateTime 03/16/2024 170.18 cm 21.8 kg/m2 62740.34 g 120 mm[Hg] 78 mm[Hg] Nicolle De La Cruz (TERMED) [facility] 4 14:56:14 Social History Question Answer Notes LastModified by Orexo Details LastModified Time Tobacco Smoking Status Former Smoker Sonia garza [facility] 03/01/2022 10:26:47 What Is Your Level Of [...] Hep A, adult 03/16/2013 completed Janay garza [facility] 07/20/2022 15:01:15 COVID-19, mRNA, LNP-S, PF, 100 mcg/0.5mL dose or 50 mcg/0.25mL dose 12/07/2020 completed Janay garza [facility] 07/20/2022 15:01:15 Influenza, split virus, trivalent, preservative 06/19/2012 completed Janay garza, [facility] 07/20/2022 15:01:15 Influenza, split virus, trivalent, preservative 06/18/2013 completed Janay garza, [facility] 07/20/2022 15:01:15 Td (adult), 2 Lf tetanus toxoid, preservative free, adsorbed 02/02/2003 completed Janay garza [facility] 07/20/2022 15:01:15 zoster recombinant 03/09/2019 completed Janay garza [facility] 07/20/2022 15:01:15 COVID-19, mRNA, LNP-S, PF, 100 mcg/0.5mL dose or 50 mcg/0.25mL dose 11/09/2020 completed Janay Villeda null, [place] - [facility] 07/20/2022 15:01:15 Hep A, adult 08/29/2017 completed Janay Villeda [place], [place] - [facility] 07/20/2022 15:01:15 Td (adult), 5 Lf tetanus toxoid, preservative free, adsorbed 02/25/2019 completed Janay Villeda null, [place] - [facility] 07/20/2022 15:01:16 COVID-19, mRNA, LNP-S, PF, 30 mcg/0.3 mL dose 08/14/2021 completed Janay Villeda null, [place] - [facility] 07/20/2022 15:01:16 zoster recombinant 07/02/2019 completed Janay botello null, [place] - [facility] 07/20/2022 15:01:16 Past Encounters Encounter ID Performer Location Encounter Start Date Encounter Closed Date Diagnosis/Indication Diagnosis SNOMED-CT Code Diagnosis ICD10 Code [id number] MD ANA JOINER004_SOU [place]_[address] ,[facility] [address] [place] [address] 03/01/2022 10:15:18 03/01/2022 11:25:18 Gynecologic examination 12207360 Z01.419 Female str ess incontinence 14285866 N39.3 [id number] MD ANA CLINE004_[address] ,[facility] [address] [place] [address] 03/02/2022 14:27:35 03/06/2022 12:40:17 Female stress incontinence 57214526 N39.3 [id number] DENISE VARGAS MD [id number]_HRK [place]_ED [address] [address] 05/10/2022 11:26:22 05/16/2022 13:36:22 Urinary incontinence 582198273 R[address] ress incontinence 42188412 N39.3 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 [id number] DENISE VARGAS MD RP412_REY [place]_ED [place] [address] [place] [address],[address] SIMEON BHANDARI [address] 07/20/2022 14:55:08 07/24/2022 16:07:40 Postoperative complication 929145032 T81.9XXS Heavy epis ode of vaginal bleeding 590424208 N93.9 [id number] MD ANA CLINE004_SOU [place]_[address] ,[address] [facility] [address] 08/15/2022 16:08:09 08/15/2022 17:54:41 Female stress incontinence 13656128 N39.3 [id number] MD ANA JOINER004_[address] ,[address] [place] [address] 03/07/2023 09:42:19 03/07/2023 10:43:36 Gynecologic examination 42448567 Z01.419 Increased frequency of urination 580734273 R35.0 [id number] DENISE VARGAS MD [id number]_OXR [address] ,[address] [facility] [place] [address] 03/16/2024 14:42:49 03/17/2024 09:47:40 Gynecologic examination 45510844 Z01.419 Chronic insomnia 5649029 04 F51.04 Health Concerns Section Related Observation LastModified by Organization Detai ls LastModified Time None Recorded Concern Status LastModified by Organization Details LastModified Time None Recorded Advance Directives Directive None Recorded Payers Encounter Date Sequence Insurance Name Policy Number Policy Escobar Covered Member ID Escobar Member ID Guarantor Name 05/10/2022 1 [place] [id number] Loyda Muhammad [id number] Loyda Muhammad 07/20/2022 1 [place] [id number] Loyda Muhammad [id number] Loyda Yepez Jb 08/15/2022 1 [place] [id number] Loyda Lucho Jb [id number] Loyda E Jb 03/07/2023 1 [place] [id number] Loyda Lucho Jb [id number] Loyda E Jb 03/16/2024 1 [place] [id number] Loyda Lucho Jb [id number] Loyda E Jb Notes Date Note Type [...] to recurrent [place] [address], [place], [address], [facility] 05/13/2022 14:16:22 07/20/2022 text/html HPI Notes: Mrs. [...] for [place] [address], [place], [address], [facility] 07/21/2022 13:11:24 08/15/2022 text/html HPI Notes: Nathalia bran presents to our office today for a postoperative visit. On July 06, 2022 she underwent a transobturator tape? optics mid urethral sling procedure and cystoscopy. This was done at the [facility]. There were no intraoperative complications and the [...] ability to [place] [address] [facility],[address], [place], [address], [facility] 08/15/2022 17:36:59 03/07/2023 text/html HPI Notes: Jack l Postmenopausal ([facility]) Reported by patient. Patient Relationship To Practice: established patient Current Medical History: no active medical problems Menopausal Symptoms: not present Vaginal Bleeding: no Sexually Active: Yes: same partner Mammogram: due Pap Smear +/- HPV Cotesting: up-to-date Colonoscopy: up-to-date Pt has 6 cups of [place] [address] [facility],[address], [place], [address], [facility] 03/07/2023 10:16:51 03/16/2024 text/html HPI Notes: Nathalia [...] does have a primary care provider in [facility] who does monitor her routine lab tests. [...] typically [place] [address] [facility],[address], [place], [address], [facility] - [facility] 03/17/2024 08:47:16 OBGyn Episode No OBEpisode recorded.
--- NOTE | 2024-05-25 14:00 | CRLHL7_ITS ---
For Patients: As a result of the Cures Act, medical imaging exams and procedure reports are released immediately into your electronic medical record. You may view this report before your referring provider. If you have questions, please contact your health care provider. INDICATION Non-toxic thyroid nodule. FINDINGS Right thyroid lobe measures 5.3 x 1.7 x 1.8 cm. Left thyroid lobe measures 4.9 x 1.3 x 1.4 cm. Diffuse heterogeneous echotexture throughout the thyroid gland without definite discrete nodule seen. Questionable hypoechoic nodule measuring 0.8 x 0.5 x 0.7 cm in the left mid thyroid lobe versus just heterogeneous tissue, TR 4. Increased vascularity nonspecific could be seen with thyroiditis. IMPRESSION Question subcentimeter left thyroid nodule versus heterogeneous echotexture. Increased vascularity and heterogeneity could be related to thyroiditis, nonspecific. Marianne James M.D. Diagnostic/Breast Radiologist [email or web address] TKP/jj ACR TI-RADS [email or web address] TR1: Benign No FNA TR2: Not Suspicious No FNA TR3: Mildly Suspicious FNA if greater than or equal to 2.5 cm Follow if greater than or equal to 1.5 cm TR4: Moderately Suspicious FNA if greater than or equal to 1.5 cm Follow if greater than or equal to 1 cm TR5: Highly Suspicious FNA if greater than or equal to 1 cm Follow if greater than or equal to 0.5 cm jj/Dictated by: Marianne James MD @ 05/26/2024 4:58:00 AM (Electronically Signed)
--- NOTE | 2024-05-25 14:45 | CRLHL7_ITS ---
For Patients: As a result of the Century Cures Act, medical imaging exams and procedure reports are released immediately into your electronic medical record. You may view this report before your referring provider. If you have questions, please contact your health care provider. INDICATION: Unspecified carotid occlusion/stenosis TECHNIQUE: The carotid circulations and the vertebral arteries in the neck were examined with oakes-scale ultrasound, color-flow and Doppler spectral analysis. Degrees of stenosis were determined using SRU 2002 Consensus Panel Criteria. COMPARISON: None. FINDINGS: No carotid plaque or stenosis is demonstrated. Doppler spectral analysis demonstrates peak systolic flow rate of 96 cm/sec in the right internal carotid artery and 113 cm/sec in the left. The ICA-CCA systolic flow ratio on the right is 1.0 and on the left is 1.0. Antegrade vertebral arterial flow is demonstrated bilaterally. IMPRESSION: 1. Negative for carotid artery plaque and hemodynamically significant stenosis by NASCET criteria. 2. Antegrade flow in both vertebral arteries. Dictated by Jose Juan Sow MD @ 05/26/2024 4:42:56 AM (Electronically Signed)
--- NOTE | 2024-05-25 15:30 | CRLHL7_ITS ---
For Patients: As a result of the Century Cures Act, medical imaging exams and procedure reports are released immediately into your electronic medical record. You may view this report before your referring provider. If you have questions, please contact your health care provider. INDICATION: Dizziness. Giddiness. TECHNIQUE: Multiplanar multisequence noncontrast MR images of the brain. COMPARISON: CT brain 05/19/2024. FINDINGS: The ventricles and sulci are within normal limits for patient age. No mass effect or midline shift. A few punctate FLAIR hyperintensities in the cerebral white matter, nonspecific. Small hemosiderin staining within the right superior frontal gyrus. No recent intracranial hemorrhage or pathologic extra-axial fluid collection. No diffusion restriction to suggest acute infarction. The major arterial flow voids at the skull base are preserved. Globes are symmetric. Mild paranasal sinus mucosal thickening. Minimal right mastoid fluid. IMPRESSION: 1. No acute intracranial abnormality. 2. Small hemosiderin staining within the right superior frontal gyrus is nonspecific in etiology, though raises the possibility of a very small underlying cavernous malformation. 3. Few punctate FLAIR hyperintensities in the supratentorial white matter are nonspecific, though most typical for sequelae of migraine headaches or minimal chronic microvascular ischemic changes. Dictated by Blair Gerard MD @ 05/26/2024 5:31:01 PM (Electronically Signed)
== END 2024-05-25 13:34 | disposition home or self-care (01) ==
LOC: US 13:34
PROVIDERS: PCP Physician Assistant Medical; Visit Provider Physician Assistant Medical
DX: I65.29 Occlusion and stenosis of unspecified carotid artery (principal); R42 Dizziness and giddiness; E04.1 Nontoxic single thyroid nodule; R03.0 Elevated blood-pressure reading, without diagnosis of hypertension
CPT/HCPCS: 70551; 76536; 93880

== ENCOUNTER 2024-05-28 11:36 | Outpatient (CLI) | payer BC, SELFPAY ==
--- OUTSIDE RECORDS SUMMARY | 2024-05-28 11:38 | XMS_ITS | Referral Summary ---
Author Organization [facility] Address [address] [place] [address] Care Team Providers Care Mine Technician Name Role Phone Diana Mccoy MD [...] Recently Relevant to Health Maintenance Care Teams Mine Technician Relationship Specialty Start Date End Date Diana Mccoy MD [address] [place] [phone] PCP - General hearing aid repairer 05/12/12
--- OUTSIDE RECORDS SUMMARY | 2024-05-28 11:38 | XMS_ITS | Clinical Summary ---
[facility] Organization [facility] Address [address] [place] [address] Care Team Providers Care Mrb Engineer Name Role Phone Erika Tello PA-C Primary Care Provider [phone] Source Comments You are receiving this document as you are listed as the primary care provider,follow-up provider, or the patient has been referred to you for consultation.This is in compliance with the Medicare and[facility] EHR Incentive Program,which states Providers who transition their patient to another setting of careor provider of care or refers their patient to another provider of care shouldprovide summary care record for each transition of care or referral. [facility] Allergies Active Allergy Reactions Criticality Noted Date [...] times a day. Active Cholecalciferol (VITAMIN D3) 28908 UNITS Active predniSONE (DELTASONE) 10 MG tablet [...] Comments Blood Pressure 138/79 08/29/2017 5:02 PM HAT BODY SORTER Pulse 86 08/29/2017 5:02 PM HAT BODY SORTER Temperature 36.4 ??C (97.6 ??F) 08/24/2023 2:08 PM CS T Respiratory Rate 16 08/29/2017 8:07 AM HAT BODY SORTER Oxygen Saturation - - Inhaled Oxygen Concentration - - Weight 61.2 kg (135 lb) 08/24/2023 2:08 PM HAT BODY SORTER Height 170.2 cm (5' 7) 08/24/2023 2:08 PM HAT BODY SORTER Body Mass Index 21.14 08/24/2023 2:08 PM HAT BODY SORTER Plan of Treatment Health Maintenance Due Date [...] LDL (IF NEEDED) Routine 08/29/2017 9:11 AM HAT BODY SORTER Encounter for screening for lipoid disorders from Last 3 Months or Most Recently Relevant to Health Maintenance Results * (ABNORMAL) Lipid Panel and Direct LDL(If Needed) (08/29/2017 9:11 AM HAT BODY SORTER) Cholesterol 245(H) 0 - 199 mg/dL PN SOFT Triglycerides 90 4 - 149 mg/dL PN SOFT HDL Cholesterol 84 >39 mg/dL PN SOFT Cholesterol/HDL Ratio Screen 2.9 PN SOFT LDL Calculated 143(H) 19 - 130 mg/dL PN SOFT Non HDL Chol, Calc 161(H) 0 - 130 mg/dL PN SOFT Hours Fasting 12.0 PN SOFT 08/29/2017 9:11 AM HAT BODY SORTER 08/29/2017 11:25 AM HAT BODY SORTER Narrative PN SOFT - 08/29/2017 11:59 AM HAT BODY SORTER Performed at [facility], [address] [place] [address] CLIA number [id number] Erika Tello PA-C LAB_1 PN SOFT [address] [place] [address] from Last 3 Months or Most Recently Relevant to Health Maintenance Care Teams Mrb Engineer Relationship Specialty Start Date End Date Erika Tello PA-C [address] [place] [address] PCP - General Physician Voice Data Communications Engineer 08/19/17
--- OUTSIDE RECORDS SUMMARY | 2024-05-28 11:38 | XMS_ITS | Clinical Summary ---
Author Organization [facility] Address [address] [place] [address] Care Team Providers Care Skiver Counter Name Role Phone Diana Mccoy MD Primary [...] Recently Relevant to Health Maintenance Care Teams Skiver Counter Relationship Specialty Start Date End Date Diana Mccoy MD [address] [place] [address] PCP - General vehicle fuel systems converter 05/12/12
--- OUTSIDE RECORDS SUMMARY | 2024-05-28 11:39 | XMS_ITS | Clinical Summary ---
Author Organization [facility] Address [place], [place] [address] Care Team Providers Care Mill And Coal Transport Operator Name Role Phone Angelo Musa Primary Care Provider [phone] Allergies Active Allergy Reactions Criticality Noted Date [...] age to complete this topic Care Teams Mill And Coal Transport Operator Relationship Specialty Start Date End Date Angelo Musa PA [facility] - General 01/23/10
== END 2024-05-28 11:37 | disposition home or self-care (01) ==
LOC: LKVREF 11:37
PROVIDERS: PCP Physician Assistant Medical; Visit Provider Physician Assistant Medical
DX: E04.1 Nontoxic single thyroid nodule (principal)
CPT/HCPCS: 84443

== ENCOUNTER 2024-11-17 08:21 | Outpatient (CLI) | payer BC, SELFPAY | END 2024-11-17 08:22 | disposition home or self-care (01) | LOC: NFLDREF 11-18 00:28 | PROVIDERS: PCP Physician Assistant Medical; Referring Provider Physician Assistant Medical; Visit Provider Physician Assistant Medical | DX: E78.5 Hyperlipidemia, unspecified (principal) | CPT/HCPCS: 80053; 80061 ==

== ENCOUNTER 2024-11-25 09:57 | Outpatient (CLI) | payer BC, SELFPAY ==
--- NOTE | 2024-11-25 10:15 | CRLHL7_ITS ---
For Patients: As a result of the Century Cures Act, medical imaging exams and procedure reports are released immediately into your electronic medical record. You may view this report before your referring provider. If you have questions, please contact your health care provider. INDICATION: Follow-up thyroid nodule COMPARISON: 05/25/2024 TECHNIQUE: Coronado scale and color Doppler images were acquired of the thyroid gland. FINDINGS: Thyroid echotexture is diffusely heterogeneous. Isthmus measures 3.2 millimeters. A solid hypoechoic nodule left thyroid lobe measures 9 x 5 x 7 millimeters, TR 4, previously measuring 8 x 5 x 7 millimeters. Innumerable smaller nodules are present elsewhere bilaterally. The right lobe measures 4.8 x 1.6 x 2.0 cm and the left lobe measures 4.7 x 1.5 x 1.6 cm in size. The color Doppler images demonstrate diffusely increased vascularity. There is no evidence of cervical lymphadenopathy or parathyroid mass. IMPRESSION: Diffusely heterogeneous and hypervascular thyroid gland with stable sub cm TR 4 nodule left thyroid lobe. No further follow-up indicated at this time. Dictated by Néstor Castro MD @ 11/25/2024 1:01:03 PM (Electronically Signed)
== END 2024-11-25 09:58 | disposition home or self-care (01) ==
PROVIDERS: PCP Physician Assistant Medical; Visit Provider Physician Assistant Medical
DX: E04.1 Nontoxic single thyroid nodule (principal)
CPT/HCPCS: 76536

== ENCOUNTER 2025-04-19 08:08 | Outpatient (CLI) | payer BC, SELFPAY | END 2025-04-19 08:09 | disposition home or self-care (01) | LOC: NFLDREF 04-21 15:09 | PROVIDERS: PCP Physician Assistant Medical; Referring Provider Physician Assistant Medical; Visit Provider Physician Assistant Medical | DX: E78.5 Hyperlipidemia, unspecified (principal); I65.22 Occlusion and stenosis of left carotid artery | CPT/HCPCS: 80061; 80076 ==

== ENCOUNTER 2025-06-22 10:34 | Outpatient (CLI) | payer BC, SELFPAY ==
--- NOTE | 2025-06-22 11:00 | CRLHL7_ITS ---
For Patients: As a result of the Cures Act, medical imaging exams and procedure reports are released immediately into your electronic medical record. You may view this report before your referring provider. If you have questions, please contact your health care provider. CLINICAL HISTORY: Occlusion and stenosis of unspecified carotid artery TECHNIQUE: The carotid circulations and the vertebral arteries in the neck were examined with oakes-scale ultrasound, color-flow and Doppler spectral analysis. Degrees of stenosis were determined using SRU 2002 Consensus Panel Criteria. COMPARISON: CT 05/19/2024 FINDINGS: Sonographic images demonstrate no evidence of atherosclerotic plaque formation or suspicious soft tissue mass. There was antegrade blood flow demonstrated within the vertebral arteries and the subclavian arteries demonstrated a normal triphasic waveform. The spectral Doppler tracings of the common carotid, internal and external carotid arteries demonstrate no abnormal turbulence or spectral broadening. There was no significant elevation of peak systolic blood flow which would indicate a hemodynamically-significant stenosis by SRU criteria. The ICA/CCA peak systolic velocity ratio measures 1.0 on the right and 1.2 on the left. IMPRESSION: Normal carotid ultrasound. Note that the left ICA now appears normal. Dictated by Néstor Castro MD @ 06/22/2025 4:07:44 PM (Electronically Signed)
== END 2025-06-22 10:35 | disposition home or self-care (01) ==
PROVIDERS: PCP Physician Assistant Medical; Visit Provider Physician Assistant Medical
DX: I65.29 Occlusion and stenosis of unspecified carotid artery (principal)
CPT/HCPCS: 93880